=== PATIENT | female | born 1950 | race Caucasian/White ===

== ENCOUNTER → 2017-01-14 | Outpatient (CLI) | payer OTHER ==
[~2017-01-14] MED LIST: ALEN70TA3 PO; ASPI81TA28 PO; ATOR10TA88 PO; ATV1 PO; CALC500T83 PO; CHOL100010 PO; CLR10 PO; GLC/500 PO; LISI20TA3 PO; METO25TA56 PO; PARO1TAB27 PO; PRLSR20 PO; PSYL0.524 PO; RXC5 PO
[2017-01-14 13:45] LABS: BASO % 0.7 %; BASO ABS # 0.04 K/uL (0-0.2); COMPLETE YES; EOS % 3.9 %; HEMATOCRIT 37.8 % (37-47); IG% 0.2 %; LYMPH % 28.4 %; LYMPH ABS # 1.74 K/uL (1.2-3.4); MEAN CELL VOLUME 76.8 fL (80-100); MEAN CORPUSCULAR HEMOGLOBIN 23.2 pg (25-34); MEAN CORPUSCULAR HGB CONC 30.2 g/dl (32-36); MEAN PLATELET VOLUME 9.8 fL (7.4-10.4); MONO % 10.5 %; NEUT % 56.3 %; PLATELET COUNT 314 K/uL (130-400); RED BLOOD COUNT 4.92 M/uL (4.2-5.4); WHITE BLOOD COUNT 6.12 K/uL (4.8-10.8)
[2017-01-14 13:50] LABS: ESTIMATED AVERAGE GLUCOSE 137 mg/dl; HA1C FLAG Normal (Normal)
[2017-01-14 15:21] LABS: ALT/SGPT 28 U/L (12-78); BLOOD UREA NITROGEN 16 mg/dl (7-18); BUN/CREATININE RATIO 15.9 (10-20); CALCIUM 9.8 mg/dl (8.5-10.1); CARBON DIOXIDE 25 mmol/L (21-32); CHLORIDE 108 mmol/L (98-107); CHOLESTEROL 151 mg/dl (0-200); CREATININE 0.99 mg/dl (0.60-1.20); GLUCOSE 111 mg/dl (70-99); POTASSIUM 4.6 mmol/L (3.5-5.1); SODIUM 141 mmol/L (136-145); TRIGLYCERIDES 158 mg/dl (0-150); VERY LOW DENSITY LIPOPROT CALC 32 mg/dl
[2017-01-14 15:32] LABS: ALKALINE PHOSPHATASE 95 U/L (45-117); AST/SGOT 19 U/L (15-37); CHOLESTEROL/HDL RATIO 4.2; HDL CHOLESTEROL 36 mg/dl; LDL CHOLESTEROL CALCULATED 83 mg/dl
== END | disposition home or self-care (01) ==
LOC: C.LABMFLN 11:50
PROVIDERS: ATTEND Physician Assistant
DX: E78.5 Hyperlipidemia, unspecified (principal); E11.9 Type 2 diabetes mellitus without complications; R12 Heartburn; I10 Essential (primary) hypertension

== ENCOUNTER → 2017-01-15 | Outpatient (CLI) | payer OTHER | END | disposition home or self-care (01) | LOC: C.LABMFLN 09:52 | PROVIDERS: ATTEND Physician Assistant | DX: E11.9 Type 2 diabetes mellitus without complications (principal); E78.5 Hyperlipidemia, unspecified; R12 Heartburn; I10 Essential (primary) hypertension ==

== ENCOUNTER → 2017-02-06 | Outpatient (CLI) | payer OTHER | END | disposition home or self-care (01) | LOC: C.MAMM 14:22 | PROVIDERS: ATTEND Physician Assistant | DX: M85.88 Other specified disorders of bone density and structure, other site (principal); M85.852 Other specified disorders of bone density and structure, left thigh ==

== ENCOUNTER → 2017-02-24 | Outpatient (CLI) | payer OTHER | END | disposition home or self-care (01) | LOC: C.LABMFLN 11:31 | PROVIDERS: ATTEND Physician Assistant | DX: E03.9 Hypothyroidism, unspecified (principal) ==

== ENCOUNTER → 2017-07-17 | Outpatient (CLI) | payer OTHER ==
[~2017-07-17] MED LIST changes: +ATOR10TA82 PO; -ATOR10TA88 PO
[2017-07-17 17:45] LABS: BASO % 0.2 %; BASO ABS # 0.01 K/uL (0-0.2); EOS % 4.3 %; EOS ABS # 0.26 K/uL (0-0.5); HEMATOCRIT 38.2 % (37-47); HEMOGLOBIN 11.5 g/dL (12.0-16.0); IG# 0.01 K/uL (0.00-0.02); LYMPH % 26.8 %; LYMPH ABS # 1.63 K/uL (1.2-3.4); MEAN CELL VOLUME 78.3 fL (80-100); MEAN CORPUSCULAR HEMOGLOBIN 23.6 pg (25-34); MEAN CORPUSCULAR HGB CONC 30.1 g/dl (32-36); MONO % 13.8 %; MONO ABS # 0.84 K/uL (0.11-0.59); NEUT % 54.7 %; NEUT ABS # 3.34 K/uL (1.4-6.5); PLATELET COUNT 279 K/uL (130-400); RED CELL DISTRIBUTION WIDTH CV 17.1 % (11.5-14.5); WHITE BLOOD COUNT 6.09 K/uL (4.8-10.8)
[2017-07-17 18:09] LABS: ALBUMIN 3.4 gm/dl (3.4-5.0); ALT/SGPT 27 U/L (12-78); BLOOD UREA NITROGEN 17 mg/dl (7-18); CARBON DIOXIDE 24 mmol/L (21-32); CHOLESTEROL 99 mg/dl (0-200); CREATININE 1.28 mg/dl (0.60-1.20); GLUCOSE 106 mg/dl (70-99); POTASSIUM 4.3 mmol/L (3.5-5.1); SODIUM 138 mmol/L (136-145)
[2017-07-17 18:20] LABS: ALKALINE PHOSPHATASE 82 U/L (45-117); AST/SGOT 19 U/L (15-37); LDL CHOLESTEROL CALCULATED 41 mg/dl; TOTAL PROTEIN 6.9 gm/dl (6.4-8.2)
[2017-07-17 18:29] LABS: HEMOGLOBIN A1C 6.3 % (4.5-5.6)
== END | disposition home or self-care (01) ==
LOC: C.LABMFLN 11:52
PROVIDERS: ATTEND Physician Assistant
DX: E11.9 Type 2 diabetes mellitus without complications (principal); E78.5 Hyperlipidemia, unspecified; E03.9 Hypothyroidism, unspecified; I10 Essential (primary) hypertension

== ENCOUNTER → 2017-07-21 | Outpatient (CLI) | payer OTHER ==
--- NOTE | 2017-07-21 11:04 | DIAGNOSTIC IMAGING REPORT ---
(CHEST) THORAX WITH CLINICAL HISTORY: 67 years-old Female presenting with R91.1 Lung [id number]. TECHNIQUE: Multidetector CT imaging of the chest was performed after the administration of intravenous contrast. IV contrast: 92 mL of Optiray 320. A dose lowering technique was used consistent with the principles of ALARA (as low as reasonably achievable). COMPARISON: 06/24/2016. CT DOSE (mGy.cm): The estimated cumulative dose is 477.30 mGy.cm. FINDINGS: Sourcing Coordinator topogram: Cholecystectomy clips noted. On soft tissue windows, normal thyroid and thoracic inlet. No axillary, supraclavicular, hilar, or mediastinal lymphadenopathy. Atherosclerosis of the aorta. Normal heart size. Coronary artery calcification at the origin of the right main coronary artery. No pericardial or pleural effusion. Cholecystectomy clips noted. On lung windows, stable appearance of the 2 solid pulmonary nodules in the right lung, one irregular appearing solid nodule in the right middle lobe measuring 5 mm (series 4 image 141), and the second subpleural ovoid solid nodule in the right lower lobe measuring 7 mm (series 4 image 158). Minimal dependent changes consistent with atelectasis. No new nodule. Airways patent. On bone windows, degenerative changes of the spine. Subpectoral breast implants noted. Osteopenia. IMPRESSION: 1. Stable solid pulmonary nodules in the right lung. No new nodule. Please refer to below summary of Fleischner Society 2017 recommendations for follow-up of incidental CT nodules (H Vicki et al. Guidelines for management of incidental pulmonary nodules detected on CT images: From the Fleischner Society 2017. Radiology 2017; 284: 228-243.) SOLID NODULES Single nodule; size < 6 mm * Low risk patients: No routine follow-up * High risk patients: Optional CT at 12 months Single nodule; size 6-8 mm * Low risk patients: CT at 6-12 months, then consider CT at 18-24 months * High risk patients: CT at 6-12 months, then at 18-24 months Single nodule; size > 8 mm * Either low or high risk patients: Considered CT at 3 months, PET/CT, or tissue sampling Multiple nodules; size < 6 mm * Low risk patients: No routine follow up * High risk patients: Optional CT at 12 months Multiple nodules; size 6-8 mm * Low risk patients: CT at 3-6 months, then consider CT at 18-24 months * High risk patients: CT at 3-6 months, then at 18-24 months Multiple nodules; size > 8 mm * Low risk patients: CT at 3-6 months, then consider at 18-24 months * High risk patients: CT at 3-6 months, then at 18-24 months Note: These guidelines apply to incidental nodules. These guidelines do not apply to patients younger than 35 years, immunocompromised patients, or patients with cancer. * Low risk patients: Minimal or absent history of smoking and/or other known risk factors * High risk patients: History of smoking, exposure to other carcinogens, emphysema, fibrosis, upper lobe location, family history of lung cancer, etc. * If a nodule up to 8 mm is partly solid or is ground glass, further follow-up is required after 24 months to exclude possible slow growing adenocarcinoma. SUBSOLID NODULES Single ground-glass nodule * Nodule size < 6 mm: No routine follow-up * Nodule size > or = 6 mm: CT at 6-12 months to confirm persistence, then CT every 2 years until 5 years Single part-solid nodule * Nodule size < 6 mm: No routine follow-up * Nodules size > or = 6 mm: CT at 3-6 months to confirm persistence. If unchanged and solid component remains < 6 mm, annual CT should be performed for 5 years Multiple nodules * Nodule size < 6 mm: CT at 3-6 months. If stable, consider CT at 2 and 4 years. * Nodules size > or = 6 mm: CT at 3-6 months. Subsequent management based on the most suspicious nodule(s) Electronically signed by: Richard Britton M.D. 07/21/2017 11:03 AM Dictated Date/Time: 07/21/2017 10:56 AM
== END | disposition home or self-care (01) ==
LOC: C.CTS 09:25
PROVIDERS: ATTEND Physician Assistant
DX: R91.1 Solitary pulmonary nodule (principal)

== ENCOUNTER → 2017-07-23 | Outpatient (CLI) | payer OTHER ==
[2017-07-23 12:59] LABS: ALBUMIN 3.5 gm/dl (3.4-5.0); BLOOD UREA NITROGEN 12 mg/dl (7-18); CALCIUM 9.4 mg/dl (8.5-10.1); CARBON DIOXIDE 26 mmol/L (21-32); CREATININE 0.96 mg/dl (0.60-1.20); GLUCOSE 121 mg/dl (70-99); PHOSPHORUS 2.7 mg/dl (2.5-4.9); POTASSIUM 3.8 mmol/L (3.5-5.1); SODIUM 141 mmol/L (136-145)
[2017-07-23 13:58] LABS: CREATININE RANDOM URINE 92.2 mg/dl
== END | disposition home or self-care (01) ==
LOC: C.LABMFLN 08:38
PROVIDERS: ATTEND Physician Assistant
DX: E03.9 Hypothyroidism, unspecified (principal); E11.9 Type 2 diabetes mellitus without complications; E78.5 Hyperlipidemia, unspecified; I10 Essential (primary) hypertension; T50.8X5A Adverse effect of diagnostic agents, initial encounter

== ENCOUNTER → 2017-09-03 | Outpatient (CLI) | payer OTHER | END | disposition home or self-care (01) | LOC: C.LABMFLN 12:52 | PROVIDERS: ATTEND Physician Assistant | DX: E03.9 Hypothyroidism, unspecified (principal) ==

== ENCOUNTER → 2018-01-27 | Outpatient (CLI) | payer OTHER ==
[2018-01-27 12:33] LABS: BASO % 0.8 %; BASO ABS # 0.05 K/uL (0-0.2); EOS % 8.3 %; EOS ABS # 0.51 K/uL (0-0.5); HEMATOCRIT 37.3 % (37-47); HEMOGLOBIN 11.4 g/dL (12.0-16.0); IG# 0.01 K/uL (0.00-0.02); LYMPH % 29.9 %; LYMPH ABS # 1.84 K/uL (1.2-3.4); MEAN CELL VOLUME 79.7 fL (80-100); MEAN CORPUSCULAR HEMOGLOBIN 24.4 pg (25-34); MEAN CORPUSCULAR HGB CONC 30.6 g/dl (32-36); MEAN PLATELET VOLUME 10.1 fL (7.4-10.4); MONO ABS # 0.43 K/uL (0.11-0.59); NEUT % 53.8 %; NEUT ABS # 3.32 K/uL (1.4-6.5); PLATELET COUNT 295 K/uL (130-400); RED CELL DISTRIBUTION WIDTH CV 17.1 % (11.5-14.5); RED CELL DISTRIBUTION WIDTH SD 49.3 fL (36.4-46.3); WHITE BLOOD COUNT 6.16 K/uL (4.8-10.8)
[2018-01-27 13:26] LABS: HEMOGLOBIN A1C 6.2 % (4.5-5.6)
[2018-01-27 13:44] LABS: ALBUMIN 3.5 gm/dl (3.4-5.0); ALKALINE PHOSPHATASE 100 U/L (45-117); ALT/SGPT 21 U/L (12-78); AST/SGOT 17 U/L (15-37); BLOOD UREA NITROGEN 14 mg/dl (7-18); CALCIUM 9.1 mg/dl (8.5-10.1); CARBON DIOXIDE 25 mmol/L (21-32); CHOLESTEROL 131 mg/dl (0-200); CREATININE 1.15 mg/dl (0.60-1.20); GLUCOSE 105 mg/dl (70-99); LDL CHOLESTEROL CALCULATED 47 mg/dl; POTASSIUM 4.5 mmol/L (3.5-5.1); SODIUM 139 mmol/L (136-145); TOTAL PROTEIN 7.1 gm/dl (6.4-8.2)
== END | disposition home or self-care (01) ==
LOC: C.LABMFLN 09:20
PROVIDERS: ATTEND Physician Assistant
DX: E11.9 Type 2 diabetes mellitus without complications (principal); E78.5 Hyperlipidemia, unspecified; I10 Essential (primary) hypertension; E03.9 Hypothyroidism, unspecified

== ENCOUNTER 2019-08-27 07:52 | Inpatient (IN) ==
--- NOTE | 2019-08-10 13:22 | PAT Medication Instructions ---
Medication Instructions Date of Service August 10, 2019 Home Medications Medication Instructions Recorded aspirin 81 mg tablet,delayed 81 mg PO DAILY #90 tab 01/22/19 release blood sugar diagnostic #50 ea 01/22/19 lancets 33 gauge #100 ea 01/22/19 loratadine 10 mg tablet 10 mg PO DAILY #90 tab 01/22/19 metformin 500 mg tablet 500 mg PO BID #180 tab 01/22/19 bupropion HCl 150 mg 24 hr tablet, 150 mg PO QAM #90 tab 02/24/19 extended release aspirin 81 mg tablet,delayed release 81 mg PO DAILY loratadine 10 mg tablet 10 mg PO DAILY metformin 500 mg tablet 500 mg PO BID lisinopril 10 mg tablet 10 mg PO HS bupropion HCl 150 mg 24 hr tablet, extended release 150 mg PO QAM atorvastatin 10 mg PO DAILY calcium carbonate-vitamin D3 [Calcium 600 + D(3)] 2 tab PO DAILY cholecalciferol (vitamin D3) [Vitamin D3] 50 mcg PO DAILY ferrous sulfate [iron] 325 mg PO DAILY levothyroxine 25 mcg PO QAM magnesium 800 mg PO DAILY metoprolol tartrate 12.5 mg PO BID omeprazole 20 mg PO QAM paroxetine HCl 30 mg PO HS DO NOT take the morning of surgery loratadine 10 mg tablet 10 mg PO DAILY metformin 500 mg tablet 500 mg PO BID calcium carbonate-vitamin D3 [Calcium 600 + D(3)] 2 tab PO DAILY cholecalciferol (vitamin D3) [Vitamin D3] 50 mcg PO DAILY ferrous sulfate [iron] 325 mg PO DAILY magnesium 800 mg PO DAILY Take morning of surgery With a small sip of water, OTHERWISE NOTHING TO EAT OR DRINK AFTER MIDNIGHT: aspirin 81 mg tablet,delayed release 81 mg PO DAILY bupropion HCl 150 mg 24 hr tablet, extended release 150 mg PO QAM atorvastatin 10 mg PO DAILY levothyroxine 25 mcg PO QAM metoprolol tartrate 12.5 mg PO BID omeprazole 20 mg PO QAM Take evening before surgery metformin 500 mg tablet 500 mg PO BID lisinopril 10 mg tablet 10 mg PO HS metoprolol tartrate 12.5 mg PO BID paroxetine HCl 30 mg PO HS Other Notes If you have any questions please call us at [phone] or [phone] or [phone] or [phone]
--- NOTE | 2019-08-12 12:10 | Anesthesiology Consultation ---
Date of Service August 12, 2019 Assessment & Plan (1) Encounter for pre-operative examination: Chart Review Chart Review: Acceptable Risk for Surgery and Patient seen in Pre Admission Testing Teaching & Discussion Instructed NPO after midnight before surgery, except medications with 15 cc of water. Medication instructions provided according to the PAT guidelines. History Surgery Operation Date: 08/30/19 12:10 Proposed Procedures p L2-L3 Decompression and Fusion, L3-S1 Hardware Removal, Spinal Cord Monitoring - Surjit Tello DO Height/Weight Height: 5 ft 2.5 in Weight: 82.1 kg Allergies Allergy/AdvReac Type Severity Reaction Status Date / Time adhesive Allergy Unknown RASH Verified 08/06/19 11:19 morphine Allergy Unknown HIVES Verified 08/06/19 11:19 chlorhexidine AdvReac Unknown Itching/Bur Verified 08/06/19 11:19 ophelia nitroglycerin AdvReac Unknown SEVERE Verified 08/06/19 11:19 HEADACHE [place] Allergy Unknown NASAL Uncoded 08/06/19 11:19 CONGESTION Medications Home Medications Medication Instructions Recorded Confirmed Last Taken aspirin 81 mg tablet,delayed 81 mg PO DAILY #90 tab 01/22/19 08/06/19 Unknown release blood sugar diagnostic #50 ea 01/22/19 07/01/19 Unknown blood-glucose meter #1 ea 01/22/19 07/01/19 Unknown lancets 33 gauge #100 ea 01/22/19 07/01/19 Unknown loratadine 10 mg tablet 10 mg PO DAILY #90 tab 01/22/19 08/06/19 Unknown metformin 500 mg tablet 500 mg PO BID #180 tab 01/22/19 08/06/19 Unknown lisinopril 10 mg tablet 10 mg PO HS 01/28/19 08/06/19 Unknown bupropion HCl 150 mg 24 hr tablet, 150 mg PO QAM #90 tab 02/24/19 08/06/19 Unknown extended release atorvastatin 10 mg PO DAILY 08/06/19 08/06/19 Unknown calcium carbonate-vitamin D3 2 tab PO DAILY 08/06/19 08/06/19 Unknown [Calcium 600 + D(3)] cholecalciferol (vitamin D3) 50 mcg PO DAILY 08/06/19 08/06/19 Unknown [Vitamin D3] ferrous sulfate [iron] 325 mg PO DAILY 08/06/19 08/06/19 Unknown levothyroxine 25 mcg PO QAM 08/06/19 08/06/19 Unknown magnesium 800 mg PO DAILY 08/06/19 08/06/19 Unknown metoprolol tartrate 12.5 mg PO BID 08/06/19 08/06/19 Unknown omeprazole 20 mg PO QAM 08/06/19 08/06/19 Unknown paroxetine HCl 30 mg PO HS 08/06/19 08/06/19 Unknown Past Medical History Medical History Anxiety (Acute) Back problem Diabetes (Acute) Esophageal reflux Fatty liver Gait abnormality Per neurology 06/2019: "likely multifactorial but suspect largest contributor is significant neuropathy on exam (likely from diabetes, h/o chemotherapy exposure). She also has a history of bilateral knee replacements and right hip replacement after which she and family noticed worsening of gait imbalance. 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 Has never locked. Lung nodule (Acute) LEFT , SIZE MONITORED...LAST CHECK: 2 YR AGO Osteoporosis (Acute) SOB (shortness of breath) on exertion Thyroid disease Umbilical hernia (Acute) Exercise / Class Metabolic Activity III < 4 Walking/Shop/Light housework (No CP or SOB with ambulation on 1 level, "out of shape") Past Family History Family History Mother Anxiety Diabetes Hypertension Myocardial infarction Father Colorectal cancer Diabetes Grandfather Alcohol abuse Past Surgical History Surgical History History of cardiac cath 20% lesion in mid LAD, otherwise normal coronaries. History of cholecystectomy + APPENDECTOMY History of colonoscopy with polypectomy History of hip surgery R History of lumbar fusion History of lumpectomy of left breast WITH SAMPLE OF LYMPH NODES History of mastectomy BILATERAL AND RECONSTRUCTION History of radiofrequency ablation procedure for cardiac arrhythmia 2000/SUCCESSFUL History of tonsillectomy and adenoidectomy History of total left knee replacement History of total right hip replacement History of total right knee replacement Past Anesthesia History No Hx of Anesthesia Complications and No Family Hx of Anesthesia Complications History of PONV No Hx of PONV and No Hx of Motion Sickness Social History Smoking Status: Never smoker Do You Dip or Chew Tobacco: No Hx Alcohol Use: No Hx Substance Use: No substance use type: does not use Review of Systems Pt denies any recent chest pain, shortness of breath, palpitations, fever or URI. +cough, mild, mostly in AM, pt feels 2/2 allergies Physical Exam Vital Signs BP: 108/73 P: 70bpm SPO2: 95% RA T: 98.1 F R: 16 ENMT Mouth: + dental restorations (upper and lower partials); no chipped teeth and no loose teeth Thyromental Distance: > or= 3.5 Finger Breadths (4) Mallampati Class: II Neck + short neck; neck extension not limited Respiratory normal respiratory effort Auscultation: lungs clear to auscultation bilaterally Cardiovascular Rate/Rhythm: regular rate and regular rhythm Heart Sounds: no murmur Extremities: no edema Testing Laboratory Results 08/12/19 12:24 08/12/19 12:24 PT 10.5 Seconds (9.0-12.0) 08/12/19 12:24 INR 1.0 (0.9-1.1) 08/12/19 12:24 APTT 24.7 Seconds (21.0-31.0) 08/12/19 12:24 Urine Color Yellow 08/12/19 Unknown Urine Appearance Clear (Clear) 08/12/19 Unknown Urine pH 7.0 (4.5-7.5) 08/12/19 Unknown Ur Specific [place] 1.010 (1.000-1.030) 08/12/19 Unknown Urine Protein Negative (Negative) 08/12/19 Unknown Urine Glucose (UA) Negative (Negative) 08/12/19 Unknown Urine Ketones Negative (Negative) 08/12/19 Unknown Urine Nitrite Negative (Negative) 08/12/19 Unknown Ur Leukocyte Esterase 1+ (Negative) H 08/12/19 Unknown Urine WBC (Auto) >30 /hpf (0-5) H 08/12/19 Unknown Urine RBC (Auto) 0-4 /hpf (0-4) 08/12/19 Unknown U Hyaline Cast (Auto) 0 /lpf (0-5) 08/12/19 Unknown U Epithel Cells (Auto) 0-5 /lpf (0-5) 08/12/19 Unknown Urine Bacteria (Auto) 4+ (Negative) H 08/12/19 Unknown Blood Type O Positive 08/12/19 12:24 Antibody Screen NEGATIVE 08/12/19 12:24 08/12/19 Unknown Urine Culture - Preliminary Urine,Clean Catch Gram negative bacilli *Surgeon's office flagged re: + UA Electrocardiogram Date: 08/12/19 Findings: + NSR @ (63bpm) Low voltage QRS. No significant change from 2016 EKG. Chest X-Ray Date: 08/12/19 Findings: + NAD Echocardiogram Date: 10/01/14 EF: >70% No RWMA. RV normal in size and function. Grade I diastolic dysfunction. No significant valve disease. Cardiac Catheterization Date: 07/05/14 Minimal singel vessel mid LAD (20%) lesion, otherwise normal coronary angiogram. Normal R heart filling pressures. Other Testing Event Monitor 07/06-07/12/19 Summary: NSR.
[2019-08-12 12:54] LABS: Basophils # (auto) 0.04 K/uL (0-0.2); Basophils % (auto) 0.6 %; Eosinophils # (auto) 0.36 K/uL (0-0.5); Hematocrit (blood only) 41.3 % (37-47); Hemoglobin 13.3 g/dL (12.0-16.0); Immature Granulocytes # (auto) 0.01 K/uL (0.00-0.02); Immature Granulocytes % (auto) 0.1 %; Lymphocytes # (auto) 2.08 K/uL (1.2-3.4); Lymphocytes % (auto) 29.1 %; Mean Corpuscular Hemoglobin 28.4 pg (25-34); Mean Corpuscular Hgb Conc 32.2 g/dL (32-36); Mean Corpuscular Volume 88.2 fL (80-100); Mean Platelet Volume 9.6 fL (7.4-10.4); Monocytes # (auto) 0.55 K/uL (0.11-0.59); Monocytes % (auto) 7.7 %; Neutrophils % (auto) 57.5 %; Platelet Count 263 K/uL (130-400); RDW Coefficient of Variation 15.5 % (11.5-14.5); RDW Standard Deviation 49.9 fL (36.4-46.3); Red Blood Count 4.68 M/uL (4.2-5.4); White Blood Count 7.14 K/uL (4.8-10.8)
[2019-08-12 13:03] LABS: BUN Creatinine Ratio 17.6 (10-20); Calcium 9.6 mg/dl (8.5-10.1); Creatinine Clr Calc Pharmacy 48.2 ml/min; Est GFR (African American) 59.6; Est GFR (Non-African American) 51.4; Potassium 4.7 mmol/L (3.5-5.1)
[2019-08-12 13:08] LABS: Partial Thromboplastin Ratio 0.9; Partial Thromboplastin Time 24.7 Seconds (21.0-31.0); Prothrombin Time 10.5 Seconds (9.0-12.0)
--- NOTE | 2019-08-12 13:37 | XRay Report ---
XR chest Pre-admission PA/Lat CLINICAL HISTORY: 69 years-old Female presenting with preoperative assessment. TECHNIQUE: PA and lateral views of the chest were obtained. COMPARISON: 01/02/2016. FINDINGS: Atherosclerosis of the aortic arch. Cardiac silhouette normal in size. Lungs and pleural spaces clear . Osseous structures normal. Cholecystectomy clips noted. Surgical clips noted in the left breast. Bi lateral breast implants suspected. IMPRESSION: 1. No acute cardiopulmonary disease. ACT 112: Negative or not required by law. Results electronically sent 08/12/2019 1:36 PM to: Surjit Tello DO Electronically signed by: Richard Britton M.D. 08/12/2019 1:36 PM
[2019-08-12 16:17] LABS: Appearance Urine Clear (Clear); Bacteria Urine Automated 4+ (Negative); Bilirubin Urine Negative (Negative); Blood Urine Negative (Negative); Cast Urine Automated 0 /lpf (0-5); Color Urine Yellow; Epithelial Cell Urine Auto 0-5 /lpf (0-5); Glucose Urine UA Negative (Negative); Ketones Urine Negative (Negative); Leukocyte Esterase Urine 1+ (Negative); Nitrite Urine Negative (Negative); Protein Urine Negative (Negative); RBC Urine Automated 0-4 /hpf (0-4); Urobilinogen Urine Negative (Negative); WBC Urine Automated >30 /hpf (0-5)
--- NOTE | 2019-08-12 22:11 | Electrocardiogram Report ---
Test Reason : Blood Pressure : / mmHG Vent. Rate : 063 BPM Atrial Rate : 063 BPM P-R Int : 146 ms QRS Dur : 084 ms QT Int : 408 ms P-R-T Axes : 000 009 007 degrees QTc Int : 417 ms Normal sinus rhythm Low voltage QRS Borderline ECG When compared with ECG of 02-JAN-2016 11:26, No significant change was found Confirmed by Darinel Soto ([id number]) on 08/12/2019 10:10:47 PM Referred By: Surjit Tello Confirmed By:Darinel Soto
[~2019-08-27 07:52] MED LIST changes: +ACETAMINOPHEN 500 MG TAB PO SCH; -ALEN70TA3 PO; -ASPI81TA28 PO; -ATOR10TA82 PO; -ATV1 PO; -CALC500T83 PO; +CEFAZOLIN 2000MG 2,000 MG/15 ML SYR IV SCH; -CHOL100010 PO; -CLR10 PO; +CeleBREX 200 MG CAP PO SCH; +GABAPENTIN 300 MG CAP PO SCH; -GLC/500 PO; -LISI20TA3 PO; +LR 15ML/HR IV SCH; -METO25TA56 PO; -PARO1TAB27 PO; -PRLSR20 PO; -PSYL0.524 PO; -RXC5 PO
[2019-08-27] MEDS ORDERED: DEXAMETHASONE SOD INJ 4 MG/ML VIAL ONE (11:13)
[2019-08-27] MEDS ORDERED: ROCURONIUM BROMIDE 10 MG/ML 5 ML VIAL ONE (11:13)
[2019-08-27] MEDS ORDERED: PROPOFOL IV EMULSION 10 MG/ML 20 ML VIAL IV ONE (11:13)
[2019-08-27] MEDS ORDERED: ONDANSETRON INJ 2 MG/ML 2 ML VIAL ONE (11:13)
[2019-08-27] MEDS ORDERED: fentaNYL citrate 100 MCG/2 ML VIAL ONE ×2 (11:13)
[2019-08-27] MEDS ORDERED: LIDOCAINE HCL 2% 2 ML VIAL/AMP(20MG/ML) INFIL ONE (11:13)
[2019-08-27] MEDS ORDERED: HYDROmorphone INJ 2 MG/ML SYR/VIAL IV PRN (11:31)
[2019-08-27] MEDS ORDERED: ONDANSETRON INJ 2 MG/ML 2 ML VIAL IV PRN ×2 (11:31→15:40)
[2019-08-27] MEDS ORDERED: ePHEDrine sulfate 50 MG/ML AMP IV PRN (11:31)
[2019-08-27] MEDS ORDERED: ATROPINE SULFATE 0.1 MG/ML 10ML SYR IV PRN (11:31)
[2019-08-27] MEDS ORDERED: PROMETHAZINE HCL 12.5 MG in SODIUM CHLORIDE 0.9% 50 ML IV PRN ×2 (11:31→15:40)
[2019-08-27] MEDS ORDERED: METOCLOPRAMIDE HCL INJ 5 MG/ML 2 ML VIAL IV PRN ×2 (11:31→15:40)
[2019-08-27] MEDS ORDERED: KETOROLAC 30 MG/ML VIAL IV PRN (11:31)
[2019-08-27] MEDS ORDERED: fentaNYL citrate 100 MCG/2 ML VIAL IV PRN (11:31)
[2019-08-27] MEDS ORDERED: GLYCOPYRROLATE 0.2 MG/ML VIAL ONE (11:44)
[2019-08-27] MEDS ORDERED: NEOSTIGMINE METHYLSULFATE 5 MG/5 ML SYR ONE (11:44)
--- NOTE | 2019-08-27 11:51 | History & Physical Bridge Note ---
Date of Service August 27, 2019 History & Physical Bridge Note I have examined the patient, reviewed the History & Physical and in the interval since the performance of the History & Physical I have noted the following changes of clinical significance: no changes noted
--- NOTE | 2019-08-27 11:52 | History & Physical Report ---
Date of Service August 27, 2019 Assessment & Plan (1) Spinal stenosis, lumbar region with neurogenic claudication: L2-L3 decompression fusion, L3-S1 hardware removal Present on Admission?: Yes History of Present Illness Chief Complaint: Back and bilateral leg pain Primary Care Provider: Stephenie Ortiz PA-C This is a 69-year-old female known to me that presents with worsening back and bilateral leg pain. After failing extensive course of nonoperative care is here for surgical intervention. Allergies Allergy/AdvReac Type Severity Reaction Status Date / Time adhesive Allergy Unknown RASH Verified 08/27/19 08:21 morphine Allergy Unknown HIVES Verified 08/27/19 08:21 chlorhexidine AdvReac Unknown Itching/Bur Verified 08/27/19 08:21 ophelia nitroglycerin AdvReac Unknown SEVERE Verified 08/27/19 08:21 HEADACHE [place] Allergy Unknown NASAL Uncoded 08/16/19 11:26 CONGESTION Home Medications Home Medications Medication Instructions Recorded Confirmed Type aspirin 81 mg tablet,delayed 81 mg PO DAILY #90 tab 01/22/19 08/27/19 Rx release blood sugar diagnostic #50 ea 01/22/19 08/16/19 Rx blood-glucose meter #1 ea 01/22/19 08/16/19 History lancets 33 gauge #100 ea 01/22/19 08/16/19 Rx loratadine 10 mg tablet 10 mg PO DAILY #90 tab 01/22/19 08/27/19 Rx atorvastatin 10 mg PO DAILY 08/06/19 08/27/19 History calcium carbonate-vitamin D3 2 tab PO DAILY 08/06/19 08/27/19 History [Calcium 600 + D(3)] cholecalciferol (vitamin D3) 50 mcg PO DAILY 08/06/19 08/27/19 History [Vitamin D3] ferrous sulfate [iron] 325 mg PO DAILY 08/06/19 08/27/19 History magnesium 800 mg PO DAILY 08/06/19 08/27/19 History metoprolol tartrate 12.5 mg PO BID 08/06/19 08/27/19 History omeprazole 20 mg PO QAM 08/06/19 08/27/19 History bupropion HCl 150 mg 24 hr tablet, 150 mg PO QAM #90 tab 08/16/19 08/27/19 Rx extended release levothyroxine 25 mcg tablet 25 mcg PO QAM #90 tab 08/16/19 08/27/19 Rx lisinopril 10 mg tablet 10 mg PO HS #90 tab 08/16/19 08/27/19 Rx meloxicam 7.5 mg tablet 7.5 mg PO DAILY 08/16/19 08/27/19 History metformin 500 mg tablet 500 mg PO BID #180 tab 08/16/19 08/27/19 Rx paroxetine HCl 30 mg tablet 30 mg PO HS #90 tab 08/16/19 08/27/19 Rx Past Med/Surg History Medical History Anxiety (Acute) Back problem Diabetes (Acute) Esophageal reflux Fatty liver Gait abnormality Per neurology 06/2019: "likely multifactorial but suspect largest contributor is significant neuropathy on exam (likely from diabetes, h/o chemotherapy exposure). She also has a history of bilateral knee replacements and right hip replacement after which she and family noticed worsening of gait imbalance. 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 Has never locked. Lung nodule (Acute) LEFT , SIZE MONITORED...LAST CHECK: 2 YR AGO Osteoporosis (Acute) SOB (shortness of breath) on exertion Thyroid disease Umbilical hernia (Acute) Surgical History History of cardiac cath 20% lesion in mid LAD, otherwise normal coronaries. History of cholecystectomy + APPENDECTOMY History of colonoscopy with polypectomy History of hip surgery R History of lumbar fusion History of lumpectomy of left breast WITH SAMPLE OF LYMPH NODES History of mastectomy BILATERAL AND RECONSTRUCTION History of radiofrequency ablation procedure for cardiac arrhythmia 2000/SUCCESSFUL History of tonsillectomy and adenoidectomy History of total left knee replacement History of total right hip replacement History of total right knee replacement Family History Mother Anxiety Diabetes Hypertension Myocardial infarction Father Colorectal cancer Diabetes Grandfather Alcohol abuse Social History Preferred Language: [place] Communication Ability: Effective Grinder Hand Required: No Beliefs That Will Affect Care: None Current Living Situation: Spouse Other Information That Helps Us Care for You: No Feels Safe at Home: Yes Smoking Status: Never smoker Do You Dip or Chew Tobacco: No ; Second Hand Exposure: No ; Hx Alcohol Use: No Hx Substance Use: No Physical Exam Physical Exam: Patient is alert and oriented neurologically intact. Results & Data Vital Signs (Past 12 Hours) Vital Signs Temp Pulse Resp BP Pulse Ox 08/27/19 08:26 36.7 C 71 18 114/78 95
[2019-08-27] MEDS ORDERED: BUPIVACAINE/EPINEPHRINE 0.5% MPF 1:200,000 10 ML VIAL ONE (12:10)
[2019-08-27] MEDS ORDERED: BACITRACIN INJ 50,000 UNIT VIAL ONE (12:10)
[2019-08-27] MEDS ORDERED: PHENYLEPHRINE 100MCG/ML 5ML SYR ONE (12:48)
[2019-08-27] MEDS ORDERED: ePHEDrine sulfate 50 MG/ML SYR ONE (12:48)
[2019-08-27] MEDS ORDERED: THROMBIN FOR SOLN 20000 UNIT KIT ONE (13:06)
[2019-08-27] MEDS ORDERED: FLOSEAL HEMOSTATIC MATRIX 10ML TOP ONE (13:17)
--- NOTE | 2019-08-27 14:09 | Operative Report ---
Post Operative Report Pre & Post Diagnosis Operation Date: 08/27/19 10:15 Pre-Op Diagnosis: Lumbar Spinal Stenosis with Neurogenic Claudication Post-Op Diagnosis: Lumbar Spinal Stenosis with Neurogenic Claudication I identified the patient and participated in the time-out.: Yes Procedure Operation Date: 08/27/19 10:15 Actual Procedures #1 removal of posterior segmental instrumentation L3-S1. #2 exploration of fusion L3-S1. #3 lumbar decompression with bilateral medial facetectomies foraminotomies L2-L3. #4 posterior spinal fusion L2-L3. #5 placement posterior instrumentation L2-L3. #6 interbody fusion L2-L3. #7 placement peek cage 9 x 22 mm at L2-L3. #8 placement locally harvested morselized autograft in the posterior gutters. #9 placement infuse collagen sponge, master graft in the posterior lateral gutters and ostial amp and interbody space. Surgeon Surjit Tello, [facility] Teacher Roe Alan Estimated Blood Loss 450 Findings Consistent with Post-Op Diagnosis Specimens None Indications This is a 69-year-old female known to me that presents with worsening chronic persistent bilateral leg pain. After failing extensive course of nonoperative care would like to undergo the above-mentioned procedure. Description of Procedure Patient was met with identified informed consent obtained. Patient was then taken to the operative suite underwent intubation placed in a prone position on the Greg table on top of the Giuseppe frame. All bony prominences well-padded eyes inspected to ensure no external pressure placed upon up at this point the lumbar spine is prepped and draped in the normal sterile fashion. Sharp dissection with the assistance of Bovie cautery was performed down to and exposing the lamina and transverse processes of L2 and instrumentation at L3-L4-L5 and S1 levels bilaterally. I then proceeded move the hardware bilaterally exploring the fusion mass noting it to be mature and intact. And then performed a complete laminectomy of L2 including bilateral medial facetectomies and foraminotomies addressing severe spinal stenosis. Pedicle screws were then placed in L2 and L3 bilaterally with assistance of fluoroscopy and the proper sized jose e placed. By way of a transforaminal approach on the right complete discectomy of L2-3 was performed endplates curetted to subcortical bleeding bone and a 9 x 22 mm peek cage filled with osteo-bone graft tapped in position. The rods were then locked into final position bilaterally. The transverse processes of L2 and L3 burred to subcortical bleeding bone. Infuse collagen sponge mass graft local autograft placed in the posterior lateral gutters. 15 round ANDRE drain inserted. Incision was then closed with 1 Vicryl in the fascia 2-0 Vicryl subcutaneously and 4 Monocryl for final skin closure. Steri-Strip sterile dressings placed. Patient waken taken to PACU stable addition. Please note Roe Alan was present at the entire procedure involved the patient positioning complex portions of the surgery and final skin closure. Lastly spinal cord monitoring was utilized that the procedure no changes noted. I attest to the content of the Intraoperative Record and any orders documented therein. Any exceptions are noted below.
--- NOTE | 2019-08-27 14:11 | Fluoroscopy Report ---
FL lumbar spine 2-3V CLINICAL HISTORY: L3-S1 REMOVE HARDWARE/L2-3 DECOMPRESSION/FUSION/INTERBODY COMPARISON STUDY: None. FLUOROSCOPY TIME: 14 seconds. FINDINGS: 2 fluoroscopic spot images of the lumbar spine demonstrate posterior decompression and fusi on at L2-L3. Evidence for hardware removal within the lower lumbar spine. The hardware appears intact . IMPRESSION: Fluoroscopy provided for L2-L3 posterior decompression and fusion ACT 112: Negative or not required by law. Electronically signed by: Jhon Naqvi M.D. 08/27/2019 2:10 PM
--- NOTE | 2019-08-27 15:07 | Anesthesiology Progress Note ---
Date of Service August 27, 2019 Anesthesia Post Procedure Vital Signs Vital Signs: Temp Pulse Pulse Resp BP Pulse Ox 08/27/19 15:05 66 15 109/68 95 08/27/19 14:55 76 13 116/63 95 08/27/19 14:45 72 13 114/69 96 08/27/19 14:35 36.9 C 78 12 93/55 L 95 08/27/19 08:26 36.7 C 71 18 114/78 95 Pain Intensity Back: Pain Intensity: 4 Transfer of Care Handoff Completed per policy Notes Mental Status: alert / awake / arousable and participated in evaluation Patient Amnestic to Procedure: Yes Nausea / Vomiting: adequately controlled Pain: adequately controlled Airway Patency, RR, SpO2: stable & adequate BP & HR: stable & adequate Hydration State: stable & adequate Anesthetic Complications: no major complications apparent
[2019-08-27] MEDS ORDERED: HYDROmorphone INJ 0.5 MG/0.5 ML SYR IV PRN (15:40)
[2019-08-27] MEDS ORDERED: SOD PHOSPHATE/SOD BIPHOSPHATE ENEMA 132 ML BTL PR PRN (15:40)
[2019-08-27] MEDS ORDERED: DO NOT ADMINISTER FLU VACCINE PRN (15:40)
[2019-08-27] MEDS ORDERED: ONDANSETRON 4 MG OD TAB PO PRN (15:40)
[2019-08-27] MEDS ORDERED: LORazepam 0.5 MG TAB PO PRN (15:40)
[2019-08-27] MEDS ORDERED: bisacodyL 10 MG SUPP PR PRN (15:40)
[2019-08-27] MEDS ORDERED: MAGNESIUM HYDROXIDE SUSP 30 ML UDC PO PRN (15:40)
[2019-08-27] MEDS ORDERED: ACETAMINOPHEN 1,000 MG/100 ML VIAL IV PRN (15:40)
[2019-08-27] MEDS ORDERED: DO NOT ADMINISTER PNEUMOCOCCAL VACCINE PRN (15:40)
[2019-08-27] MEDS ORDERED: ALUMINUM/MAGNESIUM SUSP 30 ML UDC PO PRN (15:40)
[2019-08-27] MEDS ORDERED: NALOXONE HCL 0.4 MG/1 ML VIAL/CARP IV PRN (15:40)
[2019-08-27] MEDS ORDERED: FAMOTIDINE 20 MG TAB PO PRN (15:40)
[2019-08-27] MEDS ORDERED: LORazepam 0.5 MG/1 ML VIAL IV PRN (15:40)
[2019-08-27] MEDS ORDERED: HYDROmorphone INJ 1 MG/ML SYRINGE IV PRN (15:40)
[2019-08-27] MEDS: SODIUM CHLORIDE 0.9% 1000ML 1,000 ML IV SCH (16:13)
--- NOTE | 2019-08-27 16:19 | Hospitalist Consultation ---
Date of Consultation August 27, 2019 Assessment & Plan (1) Spinal stenosis, lumbar region with neurogenic claudication: -S/p lumbar decompression fusion by Dr. Tello -Pain management, DVT prophylaxis and bowel regimen per the primary team -PT/OT consults, case management to assist with discharge to [place] per patient request -Oral intake as tolerated -Encourage fluids and use of lozenges for cottonmouth -Follow a.m. CBC and PRP (2) Diabetes: - Last A1c was in 2019 at 6.2, will recheck with a.m. labs - ISS with Accu-Cheks ACHS - Uses metformin 500 mg BID at home, currently on hold (3) Hypertension: -Continue metoprolol 12.5 mg twice daily, lisinopril 10 mg at bedtime, ASA 81 mg daily (4) Hyperlipidemia: -Continue atorvastatin 10 mg daily (5) History of ventricular tachycardia: -History of such, status post ablation which was successful (6) History of TIA (transient ischemic attack): -History of such in 2014 (7) History of breast cancer: -History of such in 2007, in remission, status post left lumpectomy, bilateral mastectomy, chemo and radiation, completed Herceptin x2 years following diagnosis. (8) Hypothyroidism: -Continue levothyroxine 25 mcg daily (9) Osteoporosis: -Continue vitamin D supplementation CODE: FULL CODE DISPO: From home Thank you for involving us in the care of Mrs. Palacio. Please do not hesitate to call with questions or concerns. Medicine service will follow along. Supervising Physician Co-Signing Physician Notes I personally saw and examined the patient. I verified all quiñones points and agree with HINA Sandoval with the following exceptions and/or additions: Possible prior TIA after a THR with hypotension during the operation. O/E HS1+2, no murmurs, CTAB, abdo SNT Hypotension - Hold lisinopril while her BP improves post operatively T2DM - agree with switching metformin to insulin coverage while here Thank you for the consult, we will continue to see given ongoing hypotension at present. History of Present Illness Attending Physician: Surjit Tello, DO History of Present Illness This is a 69-year-old female with past medical history of DM type II, HTN, HLD, breast cancer s/p bilateral mastectomy, radiation and chemotherapy in 2007, breast implants, TIA in 2015, ventricular tachycardia status post ablation in 1999 which was successful, osteoporosis, hypothyroidism, GERD, anxiety who presents for elective decompression fusion done on 08/27/[address] Tello Patient is doing very well today. She reports that she is able to move her feet and legs without difficulty, no sensory defects other than her baseline peripheral neuropathy. She reports good appetite. Notes she does have dry cottonmouth currently and that she has lozenges for this in her bag. Patient reports also wanting to go to [place] for PT/OT and that there is a bed on hold for her at time of discharge. Her lives at home with her and is able to help her with basic ADLs. Allergies Allergy/AdvReac Type Severity Reaction Status Date / Time adhesive Allergy Unknown RASH Verified 08/27/19 08:21 morphine Allergy Unknown HIVES Verified 08/27/19 08:21 chlorhexidine AdvReac Unknown Itching/Bur Verified 08/27/19 08:21 ophelia nitroglycerin AdvReac Unknown SEVERE Verified 08/27/19 08:21 HEADACHE [place] Allergy Unknown NASAL Uncoded 08/16/19 11:26 CONGESTION Home Medications Home Medications Medication Instructions Recorded Confirmed Type aspirin 81 mg tablet,delayed 81 mg PO DAILY #90 tab 01/22/19 08/27/19 Rx release blood sugar diagnostic #50 ea 01/22/19 08/16/19 Rx blood-glucose meter #1 ea 01/22/19 08/16/19 History lancets 33 gauge #100 ea 01/22/19 08/16/19 Rx loratadine 10 mg tablet 10 mg PO DAILY #90 tab 01/22/19 08/27/19 Rx atorvastatin 10 mg PO DAILY 08/06/19 08/27/19 History calcium carbonate-vitamin D3 2 tab PO DAILY 08/06/19 08/27/19 History [Calcium 600 + D(3)] cholecalciferol (vitamin D3) 50 mcg PO DAILY 08/06/19 08/27/19 History [Vitamin D3] ferrous sulfate [iron] 325 mg PO DAILY 08/06/19 08/27/19 History magnesium 800 mg PO DAILY 08/06/19 08/27/19 History metoprolol tartrate 12.5 mg PO BID 08/06/19 08/27/19 History omeprazole 20 mg PO QAM 08/06/19 08/27/19 History bupropion HCl 150 mg 24 hr tablet, 150 mg PO QAM #90 tab 08/16/19 08/27/19 Rx extended release levothyroxine 25 mcg tablet 25 mcg PO QAM #90 tab 08/16/19 08/27/19 Rx lisinopril 10 mg tablet 10 mg PO HS #90 tab 08/16/19 08/27/19 Rx meloxicam 7.5 mg tablet 7.5 mg PO DAILY 08/16/19 08/27/19 History metformin 500 mg tablet 500 mg PO BID #180 tab 08/16/19 08/27/19 Rx paroxetine HCl 30 mg tablet 30 mg PO HS #90 tab 08/16/19 08/27/19 Rx Patient History Medical History Anxiety (Acute) Back problem Diabetes (Acute) Esophageal reflux Fatty liver Gait abnormality Per neurology 06/2019: "likely multifactorial but suspect largest contributor is significant neuropathy on exam (likely from diabetes, h/o chemotherapy exposure). She also has a history of bilateral knee replacements and right hip replacement after which she and family noticed worsening of gait imba debbie. 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 Has never locked. Lung nodule (Acute) LEFT , SIZE MONITORED...LAST CHECK: 2 YR AGO Osteoporosis (Acute) SOB (shortness of breath) on exertion Thyroid disease Umbilical hernia (Acute) Surgical History History of cardiac cath 20% lesion in mid LAD, otherwise normal coronaries. History of cholecystectomy + APPENDECTOMY History of colonoscopy with polypectomy History of hip surgery R History of lumbar fusion History of lumpectomy of left breast WITH SAMPLE OF LYMPH NODES History of mastectomy BILATERAL AND RECONSTRUCTION History of radiofrequency ablation procedure for cardiac arrhythmia 2000/SUCCESSFUL History of tonsillectomy and adenoidectomy History of total left knee replacement History of total right hip replacement History of total right knee replacement Family History Mother Anxiety Diabetes Hypertension Myocardial infarction Father Colorectal cancer Diabetes Grandfather Alcohol abuse Social History Preferred Language: Azeri Communication Ability: Effective Insurance Compliance Analyst Required: No Beliefs That Will Affect Care: None Current Living Situation: Spouse Other Information That Helps Us Care for You: No Feels Safe at Home: Yes Smoking Status: Never smoker Do You Dip or Chew Tobacco: No ; Second Hand Exposure: No ; Hx Alcohol Use: No Hx Substance Use: No Review of Systems Review of Systems: Constitutional: No fever, sweats or chills Eyes: No diplopia, no worsening or blurred vision ENT: normal hearing, no trouble swallowing Respiratory: No cough, sputum, dyspnea at rest or on exertion Cardiovascular: No chest pain, tightness or palpitations Abdomen: No pain, nausea, vomiting, diarrhea or constipation Musculoskeletal: No joint pain, calf pain, swelling Neurologic: No weakness, numbness/tingling, or balance problems Psychiatric: No anxiety or depression Skin: No rash or itch Physical Exam Physical Exam: General: awake, alert, no apparent distress, + obese with BMI 32.5 Head: Normocephalic, atraumatic ENT: PERRL, EOMI, no pharyngeal exudate, mucous membranes moist Chest: Clear to auscultation, on room air, no adventitious breath sounds Cardiac: Regular rate and rhythm, no murmur, no JVD, normal peripheral pulses, good capillary refill Abdominal: NABS x 4 quadrants, soft, nontender to palpation, no rebound, guarding or tenderness Back: ANDRE drain in place, dressing C/D/I Extremities: Normal inspection, no peripheral edema or erythema, calfs nontender to palpation Psych: Normal mood and affect Neuro: AAO x 3, strength intact bilaterally and rated 5/5, no motor deficits, speech is clear, no peripheral sensory deficits Skin: no rash or erythema Results & Data ([facility]) Vital Signs (Past 12 Hours) Vital Signs Temp Pulse Pulse Resp BP Pulse Ox 08/27/19 15:58 73 15 84/48 L 98 08/27/19 15:43 36.6 C 76 15 94/61 L 100 08/27/19 15:15 36.3 C L 67 14 115/74 100 08/27/19 15:05 66 15 109/68 95 08/27/19 14:55 76 13 116/63 95 08/27/19 14:45 72 13 114/69 96 08/27/19 14:35 36.9 C 78 12 93/55 L 95 08/27/19 08:26 36.7 C 71 18 114/78 95 PG Care Time/CCT Total # of Minutes Spent Total Time Spent with Patient: Total time spent is greater than 50% in coor dination of care (as documented) at patient's floor/unit and/or counseling patient: Coding Level of Care Code 64679 Inpt Consult Level 3 Diagnoses Spinal stenosis, lumbar region with neurogenic claudication M48.062 Diabetes E11.9 Hypertension I10 Hyperlipidemia E78.5 History of ventricular tachycardia Z86.79 History of TIA (transient ischemic attack) Z86.73 History of breast cancer Z85.3 Hypothyroidism E03.9 Osteoporosis M81.0
[2019-08-27] MEDS ORDERED: GLUCOSE 40% GEL 15 GM TUBE PO PRN (16:25)
[2019-08-27] MEDS ORDERED: DEXTROSE 50% 50 ML SYRINGE IV PRN (16:25)
[2019-08-27] MEDS ORDERED: CARBOHYDRATES FOR HYPOGLYCEMIA PO PRN (16:25)
[2019-08-27] MEDS ORDERED: GLUCAGON FOR INJ 1 MG VIAL SQ PRN (16:25)
[2019-08-27] MEDS ORDERED: GLUCOSE 10 TABS/TUBE PO PRN (16:25)
[2019-08-27] MEDS: INSULIN ASPART 100 UNITS/ML 3 ML PEN SC SCH ×2 (17:28→21:22)
[2019-08-27] MEDS ORDERED: COUGH DROP (SUGAR FREE) LOZ 24 LOZ/1 BOX BUCCAL ONE (19:09)
[2019-08-27] MEDS: CEFAZOLIN 2000MG 2,000 MG/15 ML SYR IV SCH (19:16)
[2019-08-27] MEDS ORDERED: lisinopriL 10 MG TAB PO SCH (21:00)
[2019-08-27] MEDS: PARoxetine HCL 10 MG TAB PO SCH (21:13)
[2019-08-27] MEDS: DOCUSATE SODIUM/SENNA 50/8.6MG TAB PO SCH (21:13)
[2019-08-27] MEDS: TRAMADOL HCL 50 MG TABLET PO PRN (21:20)
[2019-08-27] MEDS: METOPROLOL TARTRATE 25 MG TAB PO SCH (21:21)
[2019-08-28] MEDS: TRAMADOL HCL 50 MG TABLET PO PRN ×5 (01:48→21:06)
[2019-08-28] MEDS: SODIUM CHLORIDE 0.9% 1000ML 1,000 ML IV SCH (01:50)
[2019-08-28] MEDS: CEFAZOLIN 2000MG 2,000 MG/15 ML SYR IV SCH (04:57)
[2019-08-28] MEDS: LEVOTHYROXINE SODIUM 25 MCG TABLET PO SCH (05:49)
[2019-08-28] MEDS: POLYETHYLENE (MIRALAX) 17 GM PACK PO SCH ×3 (05:49→16:42)
[2019-08-28 05:54] LABS: Basophils # (auto) 0.01 K/uL (0-0.2); Basophils % (auto) 0.1 %; Eosinophils # (auto) 0.02 K/uL (0-0.5); Eosinophils % (auto) 0.2 %; Hemoglobin 10.7 g/dL (12.0-16.0); Immature Granulocytes # (auto) 0.03 K/uL (0.00-0.02); Immature Granulocytes % (auto) 0.3 %; Lymphocytes # (auto) 1.08 K/uL (1.2-3.4); Lymphocytes % (auto) 10.7 %; Mean Corpuscular Hgb Conc 33.4 g/dL (32-36); Mean Corpuscular Volume 86.7 fL (80-100); Mean Platelet Volume 9.4 fL (7.4-10.4); Monocytes # (auto) 0.83 K/uL (0.11-0.59); Monocytes % (auto) 8.2 %; Neutrophils # (auto) 8.15 K/uL (1.4-6.5); Neutrophils % (auto) 80.5 %; Platelet Count 217 K/uL (130-400); RDW Coefficient of Variation 14.8 % (11.5-14.5); Red Blood Count 3.69 M/uL (4.2-5.4); White Blood Count 10.12 K/uL (4.8-10.8)
[2019-08-28 06:24] LABS: BUN Creatinine Ratio 16.4 (10-20); Calcium 8.6 mg/dl (8.5-10.1); Creatinine Clr Calc Pharmacy 44.4 ml/min; Est GFR (African American) 55.2; Est GFR (Non-African American) 47.7; Potassium 4.1 mmol/L (3.5-5.1)
[2019-08-28 07:48] LABS: Estimated Average Glucose 123 mg/dl; Hemoglobin A1C 5.9 % (4.5-5.6)
[2019-08-28] MEDS: ACETAMINOPHEN 500 MG TAB PO PRN ×2 (07:58→16:37)
[2019-08-28] MEDS: METOPROLOL TARTRATE 25 MG TAB PO SCH ×2 (08:46→21:54)
[2019-08-28] MEDS: ATORVASTATIN 10 MG TAB PO SCH (08:46)
[2019-08-28] MEDS: CHOLECALCIFEROL 1,000 UNITS 25 MCG TAB PO SCH (08:47)
[2019-08-28] MEDS: MAGNESIUM OXIDE 400 MG TAB PO SCH (08:47)
[2019-08-28] MEDS: LORATADINE 10 MG TAB PO SCH (08:47)
[2019-08-28] MEDS: CALCIUM 600MG + VIT D 400 IU TAB PO SCH (08:47)
[2019-08-28] MEDS: PANTOprazole 40 MG TAB PO SCH (08:47)
[2019-08-28] MEDS: FERROUS SULFATE 325 MG TAB PO SCH (08:47)
[2019-08-28] MEDS: BuPROPion XL 150 MG TABCR PO SCH (08:47)
[2019-08-28] MEDS: ASPIRIN 81 MG ECTAB PO SCH (08:47)
[2019-08-28] MEDS: INSULIN ASPART 100 UNITS/ML 3 ML PEN SC SCH ×4 (08:50→21:55)
[2019-08-28] MEDS ORDERED: CHOLECALCIFEROL 1,000 UNITS 25 MCG TAB PO SCH (09:00)
--- NOTE | 2019-08-28 10:28 | Orthopedic Progress Note ---
Date of Service August 28, 2019 Assessment & Plan (1) Lumbar stenosis with neurogenic claudication: She will continue with physical therapy today monitor her ANDRE output anticipate discharge home Friday. Present on Admission?: Yes Admission and Anticipated Discharge Date Admission Date: August 27, 2019 Subjective Back pain controlled leg symptoms markedly improved. Physical Exam Physical Exam: Patient is in the chair at the bedside is good strength testing. Appears comfortable. Results & Data ([facility]) Vital Signs (Past 12 Hours) Vital Signs Temp Pulse Resp BP Pulse Ox 08/28/19 06:58 36.6 C 75 16 104/64 99 08/28/19 03:07 36.8 C 88 20 106/66 94 08/27/19 23:14 36.7 C 85 16 98/61 L 94
--- NOTE | 2019-08-28 17:21 | Hospitalist Progress Note ---
Date of Service August 28, 2019 Assessment & Plan (1) Spinal stenosis, lumbar region with neurogenic claudication: - S/p lumbar decompression fusion by Dr. Tello - Pain management, DVT prophylaxis and bowel regimen per the primary team - PT/OT consults, case management to assist with discharge to [facility] per patient request - Oral intake as tolerated - Encourage fluids and use of lozenges for dry mouth (2) Diabetes: - HbA1C 5.9 - ISS with Accu-Cheks ACHS, loosened control given good A1C and glucose values here - She should be discharged on her usual metformin regimen (3) Hypertension: BP now improved -Continue metoprolol 12.5 mg twice daily, ASA 81 mg daily -Restarted her lisinopril 10mg HS (4) Hyperlipidemia: -Continue atorvastatin 10 mg daily (5) History of ventricular tachycardia: - History of such as per problem list although I suspect this was actually SVT, status post ablation which was successful (6) History of TIA (transient ischemic attack): - History of such in 2014. Continue ASA/atorvastatin (7) History of breast cancer: - History of such in 2007, in remission, status post left lumpectomy, bilateral mastectomy, chemo and radiation, completed Herceptin x2 years following diagnosis. (8) Hypothyroidism: -Continue levothyroxine 25 mcg daily, TSH WNL in June (9) Osteoporosis: -Continue vitamin D supplementation CODE: FULL CODE DISPO: From home Thank you for involving us in the care of Mrs. Palacio. Please do not hesitate to call with questions or concerns. Medicine service will sign off at this time. Admission and Anticipated Discharge Date Admission Date: August 27, 2019 Subjective No acute events overnight. Patient reports no lightheadedness, chest pain or shortness of breath. Review of Systems Review of Systems: All systems reviewed & are unremarkable except as noted in HPI & below Physical Exam Constitutional: WD/WN, vitals as above no acute distress Eyes: + anicteric sclerae; normal pupil size ENMT: external ear and nose normal, oropharynx normal Neck: normal visual inspection and trachea midline Respiratory: normal respiratory effort, lungs clear to auscultation Cardiovascular: RRR, no murmur, no edema Gastrointestinal (Abdomen): Inspection/Auscultation: normal bowel sounds Percussion/Palpation: abdomen soft; abdomen nontender, no guarding and abdomen not rigid Neurologic: moves all extremities and awake; no focal motor deficits and not confused Bilateral ankle dorsi/plantarflexion 10/11 Psychiatric: A+Ox3, euthymic affect Results & Data ([facility]) Vital Signs (Past 12 Hours) Vital Signs Temp Pulse Resp BP Pulse Ox 08/28/19 15:15 36.6 C 83 16 130/74 98 08/28/19 11:34 36.4 C L 87 18 126/78 98 08/28/19 06:58 36.6 C 75 16 104/64 99 PG Care Time/CCT Total # of Minutes Spent Total Time Spent with Patient: Total time spent is greater than 50% in coordination of care (as documented) at patient's floor/unit and/or counseling patient: Coding Level of Care Code 17612 Subseq Hosp Care Lvl 1 Diagnoses Spinal stenosis, lumbar region with neurogenic claudication M48.062 Diabetes E11.9 Diabetes mellitus complication status: without complication Diabetes mellitus watermaster insulin use: without senior care use Diabetes mellitus type: type 2 Hypertension I10 Hypertension type: essential hypertension Hyperlipidemia E78.5 Hyperlipidemia type: unspecified History of ventricular tachycardia Z86.79 History of TIA (transient ischemic attack) Z86.73 History of breast cancer Z85.3 Hypothyroidism E03.9 Hypothyroidism type: unspecified Osteoporosis M81.0 Osteoporosis type: unspecified Presence of current pathological fracture: without current pathological fracture (1) Diabetes Diabetes mellitus complication status: without complication Diabetes mellitus watermaster insulin use: without watermaster use Diabetes mellitus type: type 2 Qualified Code(s): E11.9 - Type 2 diabetes mellitus without complications (2) Osteoporosis Osteoporosis type: unspecified Presence of current pathological fracture: without current pathological fracture Qualified Code(s): M81.0 - Age-related osteoporosis without current pathological fracture (3) Hyperlipidemia Hyperlipidemia type: unspecified Qualified Code(s): E78.5 - Hyperlipidemia, unspecified (4) Hypothyroidism Hypothyroidism type: unspecified Qualified Code(s): E03.9 - Hypothyroidism, unspecified (5) Hypertension Hypertension type: essential hypertension Qualified Code(s): I10 - Essential (primary) hypertension
[2019-08-28] MEDS: PARoxetine HCL 10 MG TAB PO SCH (21:53)
[2019-08-28] MEDS: lisinopriL 10 MG TAB PO SCH (21:53)
[2019-08-28] MEDS: DOCUSATE SODIUM/SENNA 50/8.6MG TAB PO SCH (21:55)
[2019-08-29] MEDS: POLYETHYLENE (MIRALAX) 17 GM PACK PO SCH ×5 (00:03→23:25)
[2019-08-29] MEDS: OXYCODONE HCL IR 5 MG TAB (IMMEDIATE RELEASE) PO PRN ×3 (01:07→23:25)
[2019-08-29] MEDS: LEVOTHYROXINE SODIUM 25 MCG TABLET PO SCH (06:04)
[2019-08-29] MEDS: METOPROLOL TARTRATE 25 MG TAB PO SCH ×2 (07:40→20:32)
[2019-08-29] MEDS: ATORVASTATIN 10 MG TAB PO SCH (07:40)
[2019-08-29] MEDS: BuPROPion XL 150 MG TABCR PO SCH (07:40)
[2019-08-29] MEDS: PANTOprazole 40 MG TAB PO SCH (07:40)
[2019-08-29] MEDS: FERROUS SULFATE 325 MG TAB PO SCH ×2 (07:40→07:44)
[2019-08-29] MEDS: MAGNESIUM OXIDE 400 MG TAB PO SCH (07:40)
[2019-08-29] MEDS: CHOLECALCIFEROL 1,000 UNITS 25 MCG TAB PO SCH (07:40)
[2019-08-29] MEDS: CALCIUM 600MG + VIT D 400 IU TAB PO SCH (07:41)
[2019-08-29] MEDS: LORATADINE 10 MG TAB PO SCH (07:41)
[2019-08-29] MEDS: ASPIRIN 81 MG ECTAB PO SCH (07:41)
[2019-08-29] MEDS: INSULIN ASPART 100 UNITS/ML 3 ML PEN SC SCH ×4 (07:45→20:33)
[2019-08-29] MEDS: TRAMADOL HCL 50 MG TABLET PO PRN ×2 (07:49→12:55)
--- NOTE | 2019-08-29 11:12 | Orthopedic Progress Note ---
Date of Service August 29, 2019 Assessment & Plan (1) Spinal stenosis, lumbar region with neurogenic claudication: This time we will continue physical therapy monitor her ANDRE output anticipate discharge home tomorrow. Present on Admission?: Yes Admission and Anticipated Discharge Date Admission Date: August 27, 2019 Subjective Back pain controlled leg symptoms improved. Physical Exam Physical Exam: Patient is good strength testing appears comfortable. Results & Data ([facility]) Vital Signs (Past 12 Hours) Vital Signs Temp Pulse Resp BP Pulse Ox 08/29/19 06:05 36.9 C 91 H 16 112/67 93 08/28/19 23:18 36.8 C 80 14 123/80 99
[2019-08-29] MEDS: ACETAMINOPHEN 500 MG TAB PO PRN (15:26)
[2019-08-29] MEDS: lisinopriL 10 MG TAB PO SCH (20:34)
[2019-08-29] MEDS: PARoxetine HCL 10 MG TAB PO SCH (20:34)
[2019-08-29] MEDS: DOCUSATE SODIUM/SENNA 50/8.6MG TAB PO SCH (20:34)
[2019-08-30 06:23] VITALS: BP 106/68; TEMP 98.2; O2SAT 93
[2019-08-30] MEDS: LEVOTHYROXINE SODIUM 25 MCG TABLET PO SCH (06:37)
[2019-08-30] MEDS: ACETAMINOPHEN 500 MG TAB PO PRN ×2 (06:37→14:08)
[2019-08-30] MEDS: POLYETHYLENE (MIRALAX) 17 GM PACK PO SCH ×2 (06:38→13:59)
[2019-08-30] MEDS: LORATADINE 10 MG TAB PO SCH (07:30)
[2019-08-30] MEDS: CHOLECALCIFEROL 1,000 UNITS 25 MCG TAB PO SCH (07:30)
[2019-08-30] MEDS: ASPIRIN 81 MG ECTAB PO SCH (07:30)
[2019-08-30] MEDS: MAGNESIUM OXIDE 400 MG TAB PO SCH (07:30)
[2019-08-30] MEDS: BuPROPion XL 150 MG TABCR PO SCH (07:31)
[2019-08-30] MEDS: PANTOprazole 40 MG TAB PO SCH (07:31)
[2019-08-30] MEDS: METOPROLOL TARTRATE 25 MG TAB PO SCH (07:31)
[2019-08-30] MEDS: ATORVASTATIN 10 MG TAB PO SCH (07:32)
[2019-08-30] MEDS: INSULIN ASPART 100 UNITS/ML 3 ML PEN SC SCH ×2 (07:35→14:01)
[2019-08-30] MEDS: CALCIUM 600MG + VIT D 400 IU TAB PO SCH (07:54)
[2019-08-30] MEDS: FERROUS SULFATE 325 MG TAB PO SCH (07:54)
--- NOTE | 2019-08-30 10:06 | Discharge Summary ---
Date of Service August 30, 2019 Admission HPI Per Admitting Provider This is a 69-year-old female known to me that presents with worsening back and bilateral leg pain. After failing extensive course of nonoperative care is here for surgical intervention. Principal Diagnosis Lumbar spinal stenosis with neurogenic claudication Discharge Data Allergies Allergy/AdvReac Type Severity Reaction Status Date / Time adhesive Allergy Unknown RASH Verified 08/27/19 08:21 morphine Allergy Unknown HIVES Verified 08/27/19 08:21 chlorhexidine AdvReac Unknown Itching/Bur Verified 08/27/19 08:21 ophelia nitroglycerin AdvReac Unknown SEVERE Verified 08/27/19 08:21 HEADACHE [place] Allergy Unknown NASAL Uncoded 08/16/19 11:26 CONGESTION Consultations 08/27/19 15:40 Consult Case Management - Discharge Planning Routine Consult Hospitalist Routine Procedures Performed Operation Date: 08/27/19 10:15 Actual Procedures p L2-L3 Decompression And Fusion, Spinal Cord Monitoring(Bilateral) - Surjit Tello DO s L3-S1 Hardware Removal(Bilateral) - Surjit Tello DO Ordered Studies 08/27/19 10:15 FL fluoroscopy <1hr Routine FL lumbar spine 2-3V Routine Hospital Course (1) Spinal stenosis, lumbar region with neurogenic claudication: Patient went lumbar decompression fusion tolerated this well was taken to orthopedic floor postoperative. Postop day #1 she was up and ambulating leg symptoms markedly improved strength improving. She progressed to postop day #2 ANDRE drain decreasing appropriately. On postop day 3 pain was controlled excellent strength testing subsequently discharged home. Discharge orders instructions from the chart for further review. Total Time Total Time Spent Total Time Spent (In Minutes): 20 minutes Discharge Plan Discharge Items Patient Disposition: Home - Self-Care Reason For Visit: LUMBAR SPINAL STENOSIS WO NEUROGENIC CLAUDICATION Discharge Diagnosis: Lumbar spinal stenosis with neurogenic claudication Activity: As commented below Non-emergency contact: Primary Care Provider Call non-emergency contact if: you have any medication questions Follow-up/Referrals: Stephenie Ortiz PA-C [Primary Care Provider] - Diet: Regular Addtl Attending Provider Instructions: ACTIVITY RECOMMENDATIONS: SELF CARE INSTRUCTIONS AFTER THORACIC/LUMBAR FUSIONS 1. You may walk to your tolerance. It is good exercise for your legs and back. Expect some back and intermittent leg aches and pains. 2. You may perform "counter-top" level activities (make a sandwich, jessica with a project, etc.). 3. No bending or lifting of more than 10 pounds or back twisting of any nature (roll like a log when turning in bed). 4. You may ride in a car for 20-30 minutes at a time. No driving until after your first visit with your doctor. 5. Frequent changes of position and restricting sitting to 30 minutes at a time will help limit the amount of back spasms and stiffness you may experience. 6. You may discontinue the use of ambulatory aids (cane, crutches, etc.) once your strength and confidence allow. 7. You may machine engineer the shower and let water strike your incision when you arrive home at least once daily. Do not take a tub bath, sit in a hot tub or go into a swimming pool until after your first recheck in the office. SPECIAL CARE INSTRUCTIONS: VERY IMPORTANT TO READ AND REVIEW A. Your surgical incision has been closed with a cosmetic suture under the skin that will dissolve in about 6 weeks. In 14 days, you can use a pair of clean scissors and cut the suture that is left outside of the skin at the ends of your incision. 1. The small skin tapes can be removed 7 days after surgery if they have not fallen off by that point. 2. You may keep the wound open to air as much as possible to promote healing after post-op day number 5 unless told otherwise by your doctor. 3. If you think the wound looks like it is becoming infected (redness or worsening drainage) and/or you are experiencing fever, chill or worsening back pain and muscle spasms, contact the office so that we may evaluate you as soon as possible. B. Complications are uncommon, but please contact us if you have any signs or symptoms of: 1. wound infection (fever higher than 102.5 degrees F, redness, separation of wound, drainage, or increasing pain from the incision) 2. blood clots in legs (pain, swelling, redness and warmth in legs) 3. urinary tract infection (fever higher than 102.5 degrees F, burning upon urination or increased frequency of urination) 4. nerve problems (inability to walk on your toes or heels, numbness, loss of bowel or bladder control) 5. any other symptoms that concern you C. Please call the office at if you have any concerns or questions about your operation or recovery. D. No smoking! Smoking drastically decreases the chance of a solid fusion. E. Do not take any anti-inflammatory medications (Indocin, Advil, Motrin, Aspirin, Naprosyn, etc.) as these may inhibit the chance of a solid fusion. Tylenol is okay to take for pain. MANAGING PAIN AFTER SPINAL SURGERY 1. Narcotic medication is intended for short-term use and will be provided for surgical pain. Surgical pain usually lasts for a period of 4-6 weeks. Narcotic medication includes Percocet, Vicodin, Darvocet, Tylenol #3 or Lortab. 2. Longer-term pain is more appropriately treated with non-narcotic medication such as Tylenol ES. 3. Muscle spasm is not appropriately treated with narcotics. Muscle relaxers such as Soma, Flexeril or Skelaxin can be used along with Tylenol ES. 4. Remember that we all live with some "aches and pains". This is not unusual or uncommon after an injury or as we get older. a. Back pain is expected and may include muscle spasms for 4 to 6 weeks after surgery. The pain should gradually improve. If the pain worsens for no apparent reason, please contact the office. b. Intermittent leg pain may also be experienced and should not be concerned about unless it worsens for no apparent reason. If so, please contact the office. 5. We will provide appropriate medication within the normal guidelines of their prescribed use. We will also be very cautious and aware of potential abuse and extended duration of patients' medication needs. a. Pain medications are for your comfort and to assist with sleep and rest so that the tissue can heal. They are not provided in order to return to normal activity and should not be used through the day. To do so or worsening pain at night can result from ongoing tissue damage and development of tolerance to the prescribed medicine. 6. Please allow 2-3 days to process refills. Prescriptions will not be mailed but must be picked up at the office. FOLLOW UP VISIT: Keep your scheduled follow-up appointment. Any questions, please call the office at . Pending Studies at Discharge: No Stand-Alone Forms: My OneTouchEMR, Smoking Cessation Medications and DC Order Prescriptions: New tramadol 50 mg tablet 50 mg PO Q6H PRN (Reason: pain, moderate) Qty: 20 RF: 0 oxycodone 5 mg tablet 5 mg PO Q6H PRN (Reason: pain, severe) Qty: 20 RF: 0 Continued (DME) blood-glucose meter [OneTouch Ultra2 Meter[place] [facility] [place] Dose Instructions .ROUTE .MEDSUPPLY Qty: 1 RF: 0 aspirin 81 mg tablet,delayed release (DR/EC) 81 mg PO DAILY Qty: 90 RF: 3 loratadine 10 mg tablet 10 mg PO DAILY Qty: 90 RF: 3 (DME) OneTouch Ultra Blue Test Strip strip See Dose Instructions .ROUTE .MEDSUPPLY Qty: 50 RF: 3 (DME) lancets [OneTouch Delica Lancets] [facility] See Dose Instructions .ROUTE .MEDSUPPLY Qty: 100 RF: 3 bupropion HCl 150 mg tablet extended release 24 hr 150 mg PO QAM Qty: 90 RF: 0 paroxetine HCl 30 mg tablet 30 mg PO HS Qty: 90 RF: 1 metformin 500 mg tablet 500 mg PO BID Qty: 180 RF: 1 lisinopril 10 mg tablet 10 mg PO HS Qty: 90 RF: 1 levothyroxine 25 mcg tablet 25 mcg PO QAM Qty: 90 RF: 1 atorvastatin 10 mg tablet 10 mg PO DAILY RF: 0 omeprazole 20 mg capsule,delayed release(DR/EC) 20 mg PO QAM RF: 0 metoprolol tartrate 25 mg tablet 12.5 mg PO BID RF: 0 ferrous sulfate [iron] 325 mg (65 mg iron) Tablet 325 mg PO DAILY RF: 0 magnesium 200 mg Tablet 800 mg PO DAILY RF: 0 calcium carbonate-vitamin D3 [Calcium 600 + D(3)] 600 mg(1,500mg) -400 unit Tablet 2 tab PO DAILY RF: 0 cholecalciferol (vitamin D3) [Vitamin D3] 50 mcg (2,000 unit) Tablet 50 mcg PO DAILY RF: 0 Discontinued meloxicam 7.5 mg tablet 7.5 mg PO DAILY RF: 0 Discharge Orders: Discharge Order (Routine); Ordered 08/30/19 Ordered By: Surjit Tello Admission Data Admit Date/Time: 08/27/19 14:33 Attending Provider: Surjit Tello Admit Provider: Surjit Tello Primary Care Provider: Stephenie Ortiz Other Providers: Beth Guerrero ; Diego Stoddard
[2019-08-30 14:42] VITALS: PULSE 78
== END 2019-08-30 15:43 | disposition home or self-care (01) | DRG 455 ==
LOC: ASU 07:52 → 3E 14:33

== ENCOUNTER 2019-10-07 08:19 | Inpatient (IN) ==
--- NOTE | 2019-10-01 08:12 | History & Physical Report ---
Date of Service October 01, 2019 Assessment & Plan (1) Fracture of lumbar spine without lesion of spinal cord with delayed healing: At this time the patient has progressive instability and obvious fracture at L4-L5 fusion mass. Subsequently recommending urgent stabilization before she has more progressive neurologic deterioration and incapacitating pain increasing her risk of a nonunion blood clots and permanent neurologic deficit. Surgery would require a lumbar fusion across the L4-5 level. Benefits pros cons alternatives outlined in detail. Patient understands and agrees. Present on Admission?: Yes History of Present Illness Chief Complaint: Severe limiting back pain Primary Care Provider: Stephenie Ortiz PA-C This is a 69-year-old female that presents with worsening severe limiting back pain. She is status post lumbar decompression fusion L2-3. She did very nicely for approximately 2 to 3-week weeks postop and then had significant decline in status with marked inability to ambulate and transfer from bed to chair and chair to ambulation. Allergies Allergy/AdvReac Type Severity Reaction Status Date / Time adhesive Allergy Unknown RASH Verified 08/27/19 08:21 morphine Allergy Unknown HIVES Verified 08/27/19 08:21 chlorhexidine AdvReac Unknown Itching/Bur Verified 08/27/19 08:21 ophelia nitroglycerin AdvReac Unknown SEVERE Verified 08/27/19 08:21 HEAD[place]HE [place] Allergy Unknown NASAL Uncoded 08/16/19 11:26 CONGESTION Home Medications Home Medications Medication Instructions Recorded Confirmed Type aspirin 81 mg tablet,delayed 81 mg PO DAILY #90 tab 01/22/19 08/27/19 Rx release blood sugar diagnostic #50 ea 01/22/19 08/16/19 Rx blood-glucose meter #1 ea 01/22/19 08/16/19 History lancets 33 gauge #100 ea 01/22/19 08/16/19 Rx loratadine 10 mg tablet 10 mg PO DAILY #90 tab 01/22/19 08/27/19 Rx atorvastatin 10 mg PO DAILY 08/06/19 08/27/19 History calcium carbonate-vitamin D3 2 tab PO DAILY 08/06/19 08/27/19 History [Calcium 600 + D(3)] cholecalciferol (vitamin D3) 50 mcg PO DAILY 08/06/19 08/27/19 History [Vitamin D3] ferrous sulfate [iron] 325 mg PO DAILY 08/06/19 08/27/19 History magnesium 800 mg PO DAILY 08/06/19 08/27/19 History metoprolol tartrate 12.5 mg PO BID 08/06/19 08/27/19 History omeprazole 20 mg PO QAM 08/06/19 08/27/19 History levothyroxine 25 mcg tablet 25 mcg PO QAM #90 tab 08/16/19 08/27/19 Rx lisinopril 10 mg tablet 10 mg PO HS #90 tab 08/16/19 08/27/19 Rx metformin 500 mg tablet 500 mg PO BID #180 tab 08/16/19 08/27/19 Rx paroxetine HCl 30 mg tablet 30 mg PO HS #90 tab 08/16/19 08/27/19 Rx oxycodone 5 mg PO Q6H PRN #20 tab 08/30/19 Rx tramadol 50 mg PO Q6H PRN #30 tab 08/30/19 Rx bupropion HCl 150 mg tablet,12 hr 150 mg PO BID #60 ea 09/23/19 09/23/19 Rx sustained-release lorazepam 0.5 mg tablet See Rx Instructions PO DAILY PRN 09/23/19 09/23/19 Rx #30 tab Past Med/Surg History Social History Preferred Language: Hungarian Communication Ability: Effective Cheese Grader Required: No Beliefs That Will Affect Care: None Current Living Situation: Spouse Feels Safe at Home: Yes Smoking Status: Never smoker Second Hand Exposure: No ; Hx Alcohol Use: No Hx Substance Use: No Physical Exam Physical Exam: Patient is alert and oriented Patient is in obvious distress when I have her stand from her chair. It is severe and incapacitating to her she must immediately sit. On bench exam she does exhibit a 4/5 bilateral quadriceps and dorsiflexion 5/5 plantar flexion. Sensory appears to be symmetric and intact. Incision is well-healed. Heart is regular in rhythm Lungs clear to auscultation Results & Data Diagnostic Findings CAT scan of the lumbar spine available for review demonstrates instrumented fusion L2-3 with evidence of anterior listhesis progressive at L4-5 with evidence of fracture across the fusion mass at L4-5. All other levels appear to be healed and stabilized.
--- NOTE | 2019-10-04 14:38 | Anesthesiology Consultation ---
Date of Service October 04, 2019 Assessment & Plan (1) Encounter for pre-operative examination: Chart Review Chart Review: Acceptable Risk for Surgery and Patient NOT seen in Pre Admission Testing Consults Requested none History Surgery Operation Date: 10/07/19 07:45 Proposed Procedures p L4-L5 Fusion - Surjit Tello DO Height/Weight Height: 5 ft 2.5 in Weight: 74.843 kg Allergies Allergy/AdvReac Type Severity Reaction Status Date / Time morphine Allergy Intermediate HIVES Verified 10/04/19 08:53 adhesive Allergy Mild RASH Verified 10/04/19 08:53 chlorhexidine Allergy Mild Itching/Bur Verified 10/04/19 08:53 ophelia nitroglycerin AdvReac Intermediate SEVERE Verified 10/04/19 08:53 [place]HE [place] Allergy Mild NASAL Uncoded 10/04/19 08:53 CONGESTION Medications Home Medications Medication Instructions Recorded Confirmed Last Taken blood sugar diagnostic #50 ea 01/22/19 08/16/19 Unknown blood-glucose meter #1 ea 01/22/19 08/16/19 Unknown lancets 33 gauge #100 ea 01/22/19 08/16/19 Unknown atorvastatin 10 mg PO DAILY 08/06/19 10/04/19 Unknown calcium carbonate-vitamin D3 1 tab PO BID 08/06/19 10/04/19 08/26/19 [Calcium 600 + D(3)] cholecalciferol (vitamin D3) 50 mcg PO QAM 08/06/19 10/04/19 08/26/19 [Vitamin D3] ferrous sulfate [iron] 325 mg PO DAILY 08/06/19 10/04/19 08/26/19 magnesium 800 mg PO DAILY 08/06/19 10/04/19 08/26/19 metoprolol tartrate 12.5 mg PO BID 08/06/19 10/04/19 08/27/19 06:00 omeprazole 20 mg PO QAM 08/06/19 10/04/19 08/27/19 06:00 levothyroxine 25 mcg tablet 25 mcg PO QAM #90 tab 08/16/19 10/04/19 08/27/19 06:00 lisinopril 10 mg tablet 10 mg PO HS #90 tab 08/16/19 10/04/19 08/26/19 20:00 metformin 500 mg tablet 500 mg PO BID #180 tab 08/16/19 10/04/19 08/27/19 06:00 paroxetine HCl 30 mg tablet 30 mg PO HS #90 tab 08/16/19 10/04/19 08/26/19 20:00 oxycodone 5 mg PO Q6H PRN #20 tab 08/30/19 10/04/19 Unknown tramadol 50 mg PO Q6H PRN #30 tab 08/30/19 10/04/19 Unknown bupropion HCl 150 mg tablet,12 hr 150 mg PO BID #60 ea 09/23/19 10/04/19 Unknown sustained-release lorazepam 0.5 mg tablet See Rx Instructions PO DAILY PRN 09/23/19 10/04/19 Unknown #30 tab acetaminophen [Acetaminophen Extra 1,000 mg PO Q6H PRN 10/04/19 10/04/19 Unknown Strength] aspirin 81 mg PO QAM 10/04/19 10/04/19 Unknown loratadine 10 mg PO QAM 10/04/19 10/04/19 Unknown Past Medical History Medical History Anxiety (Acute) Back problem Diabetes (Acute) Esophageal reflux Fatty liver Gait abnormality Per neurology 06/2019: "likely multifactorial but suspect largest contributor is significant neuropathy on exam (likely from diabetes, h/o chemotherapy exposure). She also has a history of bilateral knee replacements and right hip replacement after which she and family noticed worsening of gait imba debbie. 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 Has never locked. Lung nodule (Acute) LEFT , SIZE MONITORED...LAST CHECK: 2 YR AGO Osteoporosis (Acute) SOB (shortness of breath) on exertion Thyroid disease Umbilical hernia (Acute) Past Family History Family History Mother Diabetes Anxiety Myocardial infarction Hypertension Father Diabetes Colorectal cancer Grandfather Alcohol abuse Daughter Family history of reaction to anesthesia difficulty waking Past Surgical History Surgical History History of cardiac cath after 2006, not sure when @ [facility] [place] 20% lesion in mid LAD, otherwise normal coronaries. History of cholecystectomy + APPENDECTOMY History of colonoscopy with polypectomy History of esophagogastroduodenoscopy (EGD) History of hip surgery R History of lumbar fusion x2---recently 08/27/19 History of lumpectomy of left breast WITH SAMPLE OF LYMPH NODES History of mastectomy BILATERAL AND RECONSTRUCTION History of radiofrequency ablation procedure for cardiac arrhythmia 1999/ History of tonsillectomy and adenoidectomy History of total left knee replacement History of total right hip replacement History of total right knee replacement Social History Smoking Status: Never smoker Do You Dip or Chew Tobacco: No Hx Alcohol Use: Yes Alcohol type: wine alcohol intake frequency: other Alcohol Intake Frequency Comment: very rarely Hx Substance Use: No substance use type: does not use Testing Laboratory Results Laboratory Tests 08/12/19 08/28/19 08/28/19 12:24 05:35 05:35 WBC 10.12 Hgb 10.7 L Plt Count 217 PT 10.5 INR 1.0 APTT 24.7 Sodium 138 Potassium 4.1 Chloride 108 H Carbon Dioxide 23 BUN 19 H Creatinine 1.16 Glucose 128 H Hemoglobin A1c 08/28/19 05:35 WBC Hgb Plt Count PT INR APTT Sodium Potassium Chloride Carbon Dioxide BUN Creatinine Glucose Hemoglobin A1c 5.9 H Electrocardiogram Date: 08/12/19 Normal sinus rhythm, rate 63 bpm Low voltage QRS Borderline ECG When compared with ECG of 02-JAN-2016 11:26, No significant change was found Confirmed by Darinel Soto ([id number]) on 08/12/2019 10:10:47 PM Chest X-Ray Date: 08/12/19 Findings: + NAD
[~2019-10-07 08:19] MED LIST changes: +CEFAZOLIN 1000MG 1,000 MG/7.5 ML SYR IV SCH; -CEFAZOLIN 2000MG 2,000 MG/15 ML SYR IV SCH
[2019-10-07] MEDS ORDERED: MIDAZOLAM HCL 1 MG/ML 2ML VIAL ONE (08:53)
[2019-10-07] MEDS ORDERED: fentaNYL citrate 100 MCG/2 ML VIAL ONE (08:53)
--- NOTE | 2019-10-07 09:32 | History & Physical Bridge Note ---
Date of Service October 07, 2019 History & Physical Bridge Note I have examined the patient, reviewed the History & Physical and in the interval since the performance of the History & Physical I have noted the following changes of clinical significance: no changes noted
[2019-10-07] MEDS ORDERED: BACITRACIN INJ 50,000 UNIT VIAL ONE (10:03)
[2019-10-07] MEDS ORDERED: BUPIVACAINE/EPINEPHRINE 0.5% MPF 1:200,000 10 ML VIAL ONE (10:03)
--- NOTE | 2019-10-07 10:25 | Anesthesiology Consultation ---
Date of Service October 07, 2019 GERD NIDDM HTN Hypothyroidism Hx of TIA Assessment & Plan (1) Encounter for pre-operative examination: Chart Review Chart Review: Acceptable Risk for Surgery and Patient NOT seen in Pre Admission Testing Consults Requested none ASA ASA3 Proposed Anesthesia Anesthesia Type: General Risk / Benefits Reviewed With: PT / POA / Parent / Guardian, Accepts Plan and Informed Consent Obtained History Surgery Operation Date: 10/07/19 09:55 Proposed Procedures p L4-L5 Fusion - Surjit Tello DO Height/Weight Height: 5 ft 2.5 in Weight: 72.8 kg Allergies Allergy/AdvReac Type Severity Reaction Status Date / Time morphine Allergy Intermediate HIVES Verified 10/07/19 08:40 adhesive Allergy Mild RASH Verified 10/07/19 08:40 chlorhexidine Allergy Mild Itching/Bur Verified 10/07/19 08:40 ophelia nitroglycerin AdvReac Intermediate SEVERE Verified 10/07/19 08:40 HEADACHE [place] Allergy Mild NASAL Uncoded 10/07/19 08:40 CONGESTION Medications Home Medications Medication Instructions Recorded Confirmed Last Taken blood sugar diagnostic #50 ea 01/22/19 08/16/19 Unknown blood-glucose meter #1 ea 01/22/19 08/16/19 Unknown lancets 33 gauge #100 ea 01/22/19 08/16/19 Unknown atorvastatin 10 mg PO DAILY 08/06/19 10/07/19 10/06/19 06:15 calcium carbonate-vitamin D3 1 tab PO BID 08/06/19 10/04/19 10/05/19 09:00 [Calcium 600 + D(3)] cholecalciferol (vitamin D3) 50 mcg PO QAM 08/06/19 10/04/19 10/05/19 09:00 [Vitamin D3] ferrous sulfate [iron] 325 mg PO DAILY 08/06/19 10/04/19 10/05/19 09:00 magnesium 800 mg PO DAILY 08/06/19 10/07/19 10/05/19 09:00 metoprolol tartrate 12.5 mg PO BID 08/06/19 10/04/19 10/07/19 06:15 omeprazole 20 mg PO QAM 08/06/19 10/04/19 10/07/19 06:15 levothyroxine 25 mcg tablet 25 mcg PO QAM #90 tab 03/02/2610/07/19 10/06/19 06:15 lisinopril 10 mg tablet 10 mg PO HS #90 tab 08/16/19 10/07/19 10/06/19 22:00 metformin 500 mg tablet 500 mg PO BID #180 tab 08/16/19 10/07/19 10/04/19 09:00 paroxetine HCl 30 mg tablet 30 mg PO HS #90 tab 08/16/19 10/07/19 10/06/19 22:00 tramadol 50 mg PO Q6H PRN #30 tab 08/30/19 10/07/19 Unknown bupropion HCl 150 mg tablet,12 hr 150 mg PO BID #60 ea 09/23/19 10/04/19 10/07/19 06:15 sustained-release lorazepam 0.5 mg tablet See Rx Instructions PO DAILY PRN 09/23/19 10/07/19 10/06/19 16:00 #30 tab acetaminophen [Acetaminophen Extra 1,000 mg PO Q6H PRN 10/04/19 10/07/19 10/06/19 16:00 Strength] aspirin 81 mg PO QAM 10/04/19 10/04/19 10/07/19 06:15 loratadine 10 mg PO QAM 10/04/19 10/07/19 10/06/19 06:15 Active Medications Generic Name Dose Route Start Last Admin Trade Name Freq PRN Reason Stop Dose Admin Acetaminophen 1,000 mg 10/07/19 06:00 10/07/19 09:11 Tylenol PO 10/07/19 18:00 1,000 mg PREOP TRACE Administration Celecoxib 200 mg 10/07/19 06:00 10/07/19 09:11 Celebrex PO 10/07/19 18:00 200 mg PREOP TRACE Administration Gabapentin 300 mg 10/07/19 06:00 10/07/19 09:11 Neurontin PO 10/07/19 18:00 300 mg PREOP TRACE Administration Lactated Ringer's 1,000 mls @ 15 mls/hr 10/07/19 06:00 10/07/19 09:14 Lr IV 10/08/19 05:59 15 mls/hr .Q24H TRACE Administration NPO Date Last Intake of Fluids: 10/07/19 Time Last Intake of Fluids: 06:15 Last Intake of Fluids Comment: sip with meds Date Last Intake of Solids: 10/06/19 Time Last Intake of Solids: 17:00 Past Medical History Medical History Anxiety (Acute) Back problem Diabetes (Acute) Esophageal reflux Fatty liver Gait abnormality Per neurology 06/2019: "likely multifactorial but suspect largest contributor is significant neuropathy on exam (likely from diabetes, h/o chemotherapy exposure). She also has a history of bilateral knee replacements and right hip replacement after which she and family noticed worsening of gait imbalance. 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 Has never locked. Lung nodule (Acute) LEFT , SIZE MONITORED...LAST CHECK: 2 YR AGO Osteoporosis (Acute) SOB (shortness of breath) on exertion Thyroid disease Umbilical hernia (Acute) Exercise / Class Metabolic Activity II 4-5 Yardwork/Stairs/Walk up hill Past Family History Family History Mother Diabetes Anxiety Myocardial infarction Hypertension Father Diabetes Colorectal cancer Grandfather Alcohol abuse Daughter Family history of reaction to anesthesia difficulty waking Past Surgical History Surgical History History of cardiac cath after 2006, not sure when @ [facility] [place] 20% lesion in mid LAD, otherwise normal coronaries. History of cholecystectomy + APPENDECTOMY History of colonoscopy with polypectomy History of esophagogastroduodenoscopy (EGD) History of hip surgery R History of lumbar fusion x2---recently 08/27/19 History of lumpectomy of left breast WITH SAMPLE OF LYMPH NODES History of mastectomy BILATERAL AND RECONSTRUCTION History of radiofrequency ablation procedure for cardiac arrhythmia 2000/SUCCESSFUL History of tonsillectomy and adenoidectomy History of total left knee replacement History of total right hip replacement History of total right knee replacement Past Anesthesia History No Hx of Anesthesia Complications and No Family Hx of Anesthesia Complications History of PONV No Hx of PONV and No Hx of Motion Sickness Social History Smoking Status: Never smoker Do You Dip or Chew Tobacco: No Hx Alcohol Use: Yes Alcohol type: wine alcohol intake frequency: other Alcohol Intake Frequency Comment: very rarely Hx Substance Use: No substance use type: does not use Physical Exam Vital Signs Last Vital Signs Temp 36.8 C 10/07/19 08:58 Pulse 76 10/07/19 08:58 Resp 16 10/07/19 08:58 BP 95/70 L 10/07/19 08:58 Pulse Ox 98 10/07/19 08:58 ENMT Mouth: no dentition abnormality Thyromental Distance: > or= 3.5 Finger Breadths Mallampati Class: II Neck normal visual inspection Respiratory normal respiratory effort Auscultation: lungs clear to auscultation bilaterally Cardiovascular Rate/Rhythm: regular rate and regular rhythm Psychiatric Orientation: alert Testing Laboratory Results 10/07/19 08:40 POC Glucose 123 H
[2019-10-07] MEDS ORDERED: DEXAMETHASONE SOD INJ 4 MG/ML VIAL ONE (10:49)
[2019-10-07] MEDS ORDERED: ONDANSETRON INJ 2 MG/ML 2 ML VIAL ONE (10:49)
[2019-10-07] MEDS ORDERED: ROCURONIUM BROMIDE 10 MG/ML 5 ML VIAL ONE ×2 (10:49→11:46)
[2019-10-07] MEDS ORDERED: ePHEDrine sulfate 50 MG/ML SYR ONE (11:46)
[2019-10-07] MEDS ORDERED: PHENYLEPHRINE 100MCG/ML 5ML SYR ONE (11:46)
[2019-10-07] MEDS ORDERED: GLYCOPYRROLATE 0.2 MG/ML VIAL ONE ×2 (11:47→12:01)
[2019-10-07] MEDS ORDERED: NEOSTIGMINE METHYLSULFATE 5 MG/5 ML SYR ONE (11:47)
[2019-10-07] MEDS ORDERED: PROPOFOL IV EMULSION 10 MG/ML 20 ML VIAL IV ONE (11:47)
[2019-10-07] MEDS ORDERED: LIDOCAINE HCL 2% 2 ML VIAL/AMP(20MG/ML) INFIL ONE (11:47)
[2019-10-07] MEDS ORDERED: FLOSEAL HEMOSTATIC MATRIX 10ML TOP ONE (11:58)
--- NOTE | 2019-10-07 12:05 | Operative Report ---
Post Operative Report Pre & Post Diagnosis Operation Date: 10/07/19 09:55 Pre-Op Diagnosis: Fracture of lumbar spine without lesion of spinal cord with delayed healing Post-Op Diagnosis: Fracture of lumbar spine without lesion of spinal cord with delayed healing I identified the patient and participated in the time-out.: Yes Procedure Operation Date: 10/07/19 09:55 Actual Procedures #1 removal of instrumentation L2-L3. #2 posterior spinal fusion L3-S1. #3 placed a posterior segmental instrumentation including a cross-link L3-S1. #4 placement locally harvested morselized autograft in the posterior gutters. #5 placement infuse collagen sponge, master graft in the posterior lateral gutters L3-S1. Surgeon Surjit Tello, Certified Composites Technician Prisca Bryson Estimated Blood Loss 75 Findings Consistent with Post-Op Diagnosis Specimens None Indications This is a 69-year-old female well-known to me the presents my office with wor sening back pain. Imaging demonstrates evidence of a fracture across the L4-5 fusion mass consistent with delayed to nonhealing. Description of Procedure Patient was met with preop the case discussed all questions addressed by them and patient was taken back to the operative suite underwent an patient placed in a prone position the Greg table on top Giuseppe frame. All bony prominences well-padded eyes inspected to ensure no external pressure placed upon them. This point the lumbar spine is prepped and draped in normal sterile fashion. Sharp dissection with the assistance pericardial form down to and exposing the instrumentation L2 and L3 as well as the posterior fusion mass and remaining transverse processes of L3-L4-L5 and the sacral ala bilaterally. Then proceeded move the hardware at L3-4 and with assistance of fluoroscopy placed pedicle screws in L3-L4-L5 and S1 pedicles. Proper sized jose e was then contoured and locked into position bilaterally. This included a cross-link. The transverse processes and fusion mass from L3-S1 were then burred to subcortical bleeding bone. Infuse collagen sponge master graft local autograft was then placed in the posterior gutters. 15 round ANDRE drain inserted. The incision was then closed with 1 Vicryl the fascia 2-0 Vicryl subcutaneously and 4 Monocryl for final skin closure. Steri-Strip sterile dressings placed. Patient will continue PACU stable condition. Please note Prisca Bryson was present at the entire procedure involved the patient positioning complex portions of the surg magdi and final skin closure. I attest to the content of the Intraoperative Record and any orders documented therein. Any exceptions are noted below.
--- NOTE | 2019-10-07 12:15 | Fluoroscopy Report ---
FL lumbar spine 2-3V HISTORY: 69 years-old Female L4-L5 FUSION chronic low back pain COMPARISON: Fluoroscopic images of the lumbar spine 08/27/2019 TECHNIQUE: 4 spot fluoroscopic images of the lumbar spine were obtained utilizing 7.4 seconds fluoros copy time FINDINGS: Laminectomy changes with posterior interbody jose e and screw fusion at what appears to be the L2-S1 lev els. Discectomy changes with posterior interbody jose e and screw fusion was previously noted at L2-L3. There is satisfactory alignment and the hardware appears intact. Multilevel disc space narrowing with spondylitic spurring and facet arthrosis. IMPRESSION: Fluoroscopic assistance as above. Please see operative report for further details. ACT 112: Negative or not required by law. The above report was generated using voice recognition software. It may contain grammatical, syntax o r spelling errors. Electronically signed by: Kevin Thompson M.D. 10/07/2019 12:13 PM
--- NOTE | 2019-10-07 13:11 | Anesthesiology Progress Note ---
Date of Service October 07, 2019 Anesthesia Post Procedure Vital Signs Vital Signs: Temp Pulse Pulse Resp BP Pulse Ox 10/07/19 13:10 36.8 C 81 12 113/67 96 10/07/19 13:00 81 16 111/76 96 10/07/19 12:50 83 17 110/71 97 10/07/19 12:41 37.0 C 85 18 121/79 98 10/07/19 08:58 36.8 C 76 16 95/70 L 98 Pain Intensity Right Hip: Pain Intensity: 10 Transfer of Care Handoff Completed per policy Notes Mental Status: alert / awake / arousable Patient Amnestic to Procedure: Yes Nausea / Vomiting: adequately controlled Pain: adequately controlled Airway Patency, RR, SpO2: stable & adequate BP & HR: stable & adequate Hydration State: stable & adequate Anesthetic Complications: no major complications apparent
[2019-10-07] MEDS ORDERED: ONDANSETRON 4 MG OD TAB PO PRN (13:48)
[2019-10-07] MEDS ORDERED: DO NOT ADMINISTER FLU VACCINE PRN (13:48)
[2019-10-07] MEDS ORDERED: DO NOT ADMINISTER PNEUMOCOCCAL VACCINE PRN (13:48)
[2019-10-07] MEDS ORDERED: HYDROmorphone INJ 0.5 MG/0.5 ML SYR IV PRN (13:48)
[2019-10-07] MEDS ORDERED: HYDROmorphone INJ 1 MG/ML SYRINGE IV PRN (13:48)
[2019-10-07] MEDS ORDERED: METOCLOPRAMIDE HCL INJ 5 MG/ML 2 ML VIAL IV PRN (13:48)
[2019-10-07] MEDS ORDERED: PROMETHAZINE HCL 12.5 MG in SODIUM CHLORIDE 0.9% 50 ML IV PRN (13:48)
[2019-10-07] MEDS ORDERED: ALUMINUM/MAGNESIUM SUSP 30 ML UDC PO PRN (13:48)
[2019-10-07] MEDS ORDERED: NALOXONE HCL 0.4 MG/1 ML VIAL/CARP IV PRN (13:48)
[2019-10-07] MEDS ORDERED: LORazepam 0.5 MG TAB PO PRN ×2 (13:48)
[2019-10-07] MEDS ORDERED: ACETAMINOPHEN 1,000 MG/100 ML VIAL IV PRN (13:48)
[2019-10-07] MEDS ORDERED: TRAMADOL HCL 50 MG TABLET PO PRN (13:48)
[2019-10-07] MEDS ORDERED: LORazepam 0.5 MG/1 ML VIAL IV PRN (13:48)
[2019-10-07] MEDS ORDERED: bisacodyL 10 MG SUPP PR PRN (13:48)
[2019-10-07] MEDS ORDERED: MAGNESIUM HYDROXIDE SUSP 30 ML UDC PO PRN (13:48)
[2019-10-07] MEDS ORDERED: SOD PHOSPHATE/SOD BIPHOSPHATE ENEMA 132 ML BTL PR PRN (13:48)
[2019-10-07] MEDS ORDERED: FAMOTIDINE 20 MG TAB PO PRN (13:48)
[2019-10-07] MEDS ORDERED: ONDANSETRON INJ 2 MG/ML 2 ML VIAL IV PRN (13:48)
[2019-10-07] MEDS ORDERED: PHARMACY GLYCEMIC MGMT CONSULT PRN (14:10)
[2019-10-07] MEDS: SODIUM CHLORIDE 0.9% 1000ML 1,000 ML IV SCH (14:12)
--- NOTE | 2019-10-07 14:28 | Pharmacy Report ---
Glycemic Control Consultation - Date of Service October 07, 2019 - Scope Scope: Glycemic Pharmacist consulted for glycemic control and to write orders per [facility] inpatient glycemic control protocol. - Objective Weight: 72.8 kg Accuchecks BSG (last 24hrs): 10/07/19 10/07/19 10/07/19 08:40 12:43 14:04 POC Glucose 123 H 144 H 151 H - Recent Pertinent Medications Outpatient Anti-diabetic Regimen: * metformin 500 mg bid * A1c = 5.9 % 08/2019 Risk Factors for Insulin Resistance: * Steroids: dex iv 8 mg x 1 * Recent Surgery: POD 0 * Diet: clears - Assessment & Plan Assessment & Plan: ASSESSMENT: * 69 year old POD 0 for lumbar fusion - pharmacy consulted to assist with glycem ic management postop * Type 2 diabetic managed only on metformin at home. Patient previously admitted 08/26 of this year - will utilize similar insulin regimen to prior admission. Appears also receiving similar steroids on prior admission, however BSGs at that time well controlled only with novolog insulin. May add small scale for basal insulin this evening due to concern for possible hyperglycemia with steroids. PLAN FOR INPATIENT GLYCEMIC CONTROL: * Holding outpatient oral diabetes medications * Basal insulin * Lantus HS - give only if BSG >200 - 10 units * Bolus insulin * NovoLog per scale ACHS or Q6hrs while NPO * Goal Range: Low 110 mg/dL - High 140 mg/dL * Correction Factor: 30 mg/dL/unit * Nutritional / Prandial insulin per carb ratio of 1 unit per 10 grams CHO consumed * Please note that the plan above was derived based on current level of insulin resistance and hospital stress. These recommendations are appropriate for i npatient admission only. Plan of care upon discharge will need to be reassessed to avoid potential outpatient hypo/hyperglycemia. Thank you.
[2019-10-07] MEDS ORDERED: CARBOHYDRATES FOR HYPOGLYCEMIA PO PRN (14:30)
[2019-10-07] MEDS ORDERED: GLUCAGON FOR INJ 1 MG VIAL IM PRN (14:30)
[2019-10-07] MEDS ORDERED: DEXTROSE 50% 50 ML SYRINGE IV PRN (14:30)
[2019-10-07] MEDS ORDERED: GLUCOSE 10 TABS/TUBE PO PRN (14:30)
[2019-10-07] MEDS ORDERED: GLUCOSE 40% GEL 15 GM TUBE PO PRN (14:30)
--- NOTE | 2019-10-07 14:47 | Anesthesiology Progress Note ---
Date of Service October 07, 2019 Anesthesia Post Procedure Vital Signs Vital Signs: Temp Pulse Pulse Resp BP Pulse Ox 10/07/19 14:36 36.6 C 71 18 88/43 L 99 10/07/19 14:09 36.6 C 71 18 93/56 L 99 10/07/19 13:35 36.6 C 80 16 110/73 98 10/07/19 13:25 79 13 106/66 97 10/07/19 13:10 36.8 C 81 12 113/67 96 10/07/19 13:00 81 16 111/76 96 10/07/19 12:50 83 17 110/71 97 10/07/19 12:41 37.0 C 85 18 121/79 98 10/07/19 08:58 36.8 C 76 16 95/70 L 98 Pain Intensity Right Hip: Pain Intensity: 10 Transfer of Care Handoff Completed per policy Notes Mental Status: alert / awake / arousable Patient Amnestic to Procedure: Yes Nausea / Vomiting: adequately controlled Pain: adequately controlled Airway Patency, RR, SpO2: stable & adequate BP & HR: stable & adequate Hydration State: stable & adequate Anesthetic Complications: no major complications apparent
[2019-10-07] MEDS ORDERED: SODIUM CHLORIDE 0.9% 1000ML 500 ML IV ONE ×2 (14:48→17:59)
--- NOTE | 2019-10-07 15:13 | Consultation ---
Date of Consultation October 07, 2019 Assessment & Plan (1) Spinal stenosis, lumbar region with neurogenic claudication: s/p decompression and fusion 10/06 Pain medication, dvt proph per primary Monitor for acute blood loss, cbc am Resume asa when ok with primary (2) Hypothyroidism: continue levothyroxine (3) Hypertension: Currently hypotensive - hold lisinopril for now, continue metoprolol Will give small bolus of 500 ml nss (4) Hyperlipidemia: Continue home statin (5) DMII (diabetes mellitus, type 2): [facility] ac & hs pharmacy glycemic management Supervising Physician Co-Signing Physician Notes Attending Attestation: Pt seen/examined, chart reviewed, consult care plan d/w PROJECT LANDSCAPE ARCHITECT Astrid Jayjay. I agree w/ the quiñones components of her consult documentation. 69yo female with recent history of back surgery on 08/27/19 - removal of ins trumentation with lumbar decompression/fusion - who presented today for repeat lumbar surgery due to delayed healing. Underwent removal of instrumentation from the prior surgery and repeat decompression/fusion. Post-op she had hypotension requiring 500cc NS bolus. Looking through records she had similar hypotension after her 08/27/19 back surgery. During my assessment she had persistent hypotension requiring a 2nd 500cc NS bolus. This improved her systolic BP to >100. Also during my assessment she denied any dyspnea or chest pain. PMH, PSH, allergies, meds, sochx, famhx - reviewed BPs low, other vitals stable gen - mild pallor otherwise NAD neck - no JVD heart - RRR, s1, s2 lungs - CTA b/l abd - soft NT; midline hernia - reducible; BS+; ND ext - no edema A/P: 1. s/p extensive lumbar surgery - removal of hardware, repeat decompression/fusion 2. post-operative hypotension -- s/p 1 L NS bolus Will check CBC, BMP, cortisol level to ensure no significant blood loss, stability of creatinine, etc 3. hypothyroidism 4. HTN - hold BP meds 5. T2DM - pharmacy to provide glycemic management Diego Landon MD History of Present Illness Ms. Palacio is s/p decompression and fusion today with Dr. Tello. She is having some hypotension that is asymptomatic but otherwise has no complaints. She is drowsy but able to converse easily. Her pain is well controlled. Attending Physician: Surjit Tello, DO Allergies Allergy/AdvReac Type Severity Reaction Status Date / Time morphine Allergy Intermediate HIVES Verified 10/07/19 08:40 adhesive Allergy Mild RASH Verified 10/07/19 08:40 chlorhexidine Allergy Mild Itching/Bur Verified 10/07/19 08:40 ophelia nitroglycerin AdvReac Intermediate SEVERE Verified 10/07/19 08:40 HEADACHE Home Medications Home Medications Medication Instructions Recorded Confirmed Type blood sugar diagnostic #50 ea 01/22/19 08/16/19 Rx blood-glucose meter #1 ea 01/22/19 08/16/19 History lancets 33 gauge #100 ea 01/22/19 08/16/19 Rx atorvastatin 10 mg PO DAILY 08/06/19 10/07/19 History calcium carbonate-vitamin D3 1 tab PO BID 08/06/19 10/04/19 History [Calcium 600 + D(3)] cholecalciferol (vitamin D3) 50 mcg PO QAM 08/06/19 10/04/19 History [Vitamin D3] ferrous sulfate [iron] 325 mg PO DAILY 08/06/19 10/04/19 History magnesium 800 mg PO DAILY 08/06/19 10/07/19 History metoprolol tartrate 12.5 mg PO BID 08/06/19 10/04/19 History omeprazole 20 mg PO QAM 08/06/19 10/04/19 History levothyroxine 25 mcg tablet 25 mcg PO QAM #90 tab 08/16/19 10/07/19 Rx lisinopril 10 mg tablet 10 mg PO HS #90 tab 08/16/19 10/07/19 Rx metformin 500 mg tablet 500 mg PO BID #180 tab 08/16/19 10/07/19 Rx paroxetine HCl 30 mg tablet 30 mg PO HS #90 tab 08/16/19 10/07/19 Rx tramadol 50 mg PO Q6H PRN #30 tab 08/30/19 10/07/19 Rx bupropion HCl 150 mg tablet,12 hr 150 mg PO BID #60 ea 09/23/19 10/04/19 Rx sustained-release lorazepam 0.5 mg tablet See Rx Instructions PO DAILY PRN 09/23/19 10/07/19 Rx #30 tab acetaminophen [Acetaminophen Extra 1,000 mg PO Q6H PRN 10/04/19 10/07/19 History Strength] aspirin 81 mg PO QAM 10/04/19 10/04/19 History loratadine 10 mg PO QAM 10/04/19 10/07/19 History Patient History Family History Mother Diabetes Anxiety Myocardial infarction Hypertension Father Diabetes Colorectal cancer Grandfather Alcohol abuse Daughter Family history of reaction to anesthesia difficulty waking Social History Preferred Language: Georgian Communication Ability: Effective Cardiac Technician Required: No Beliefs That Will Affect Care: None Current Living Situation: Spouse Other Information That Helps Us Care for You: No Feels Safe at Home: Yes Safety Concerns: Feels Safe At This Time Smoking Status: Never smoker Do You Dip or Chew Tobacco: No ; Second Hand Exposure: Yes (father smoked) ; Tobacco Cessation Education Requested by Patient: No Hx Alcohol Use: Yes Alcohol type: wine Hx Substance Use: No Review of Systems Constitutional: no fever, no chills, no sweats and no body aches Respiratory: no cough and no dyspnea Cardiovascular: no chest pain, no dyspnea and no lightheadedness Gastrointestinal: no abdominal pain, no nausea and no vomiting Genitourinary: no dysuria and no urinary frequency Musculoskeletal: + back pain (mild); no joint pain Integumentary: no rash Physical Exam Physical Exam: General: no distress Eyes: normal inspection, PERLL Respiratory: chest non tender, clear to auscultation, normal breath sounds, no respiratory distress, no accessory muscle use Cardiac: regular rate and rhythm, no rub or gallop, no murmur, no edema, no jvd GI/: active bowel sounds, no abd pain or tenderness, soft, non distended Extremities: normal range of motion, normal strength, non tender Neuro: alert, moves all extremities Psych:oriented x 3, normal mood and affect Skin: normal color, dry Results & Data ([facility]) Vital Signs (Past 12 Hours) Vital Signs Temp Pulse Pulse Resp BP Pulse Ox 10/07/19 14:36 36.6 C 71 18 88/43 L 99 10/07/19 14:09 36.6 C 71 18 93/56 L 99 10/07/19 13:35 36.6 C 80 16 110/73 98 10/07/19 13:25 79 13 106/66 97 10/07/19 13:10 36.8 C 81 12 113/67 96 10/07/19 13:00 81 16 111/76 96 10/07/19 12:50 83 17 110/71 97 10/07/19 12:41 37.0 C 85 18 121/79 98 10/07/19 08:58 36.8 C 76 16 95/70 L 98 PG Care Time/CCT Total # of Minutes Spent Total Time Spent with Patient: Total time spent is greater than 50% in coordination of care (as documented) at patient's floor/unit and/or counseling patient: Coding Level of Care Code 12617 Inpt Consult Level 4 Diagnoses Spinal stenosis, lumbar region with neurogenic claudication M48.062 Hypothyroidism E03.9 Hypothyroidism type: unspecified Hypertension I10 Hypertension type: essential hypertension Hyperlipidemia E78.5 Hyperlipidemia type: unspecified DMII (diabetes mellitus, type 2) E11.9 (1) Hyperlipidemia Hyperlipidemia type: unspecified Qualified Code(s): E78.5 - Hyperlipidemia, unspecified (2) Hypothyroidism Hypothyroidism type: unspecified Qualified Code(s): E03.9 - Hypothyroidism, unspecified (3) Hypertension Hypertension type: essential hypertension Qualified Code(s): I10 - Essential (primary) hypertension
[2019-10-07] MEDS: INSULIN ASPART 100 UNITS/ML 3 ML PEN SC SCH ×2 (18:20→20:58)
[2019-10-07] MEDS: CEFAZOLIN 2000MG 2,000 MG/15 ML SYR IV SCH (18:47)
[2019-10-07 19:18] LABS: Basophils # (auto) 0.01 K/uL (0-0.2); Basophils % (auto) 0.2 %; Eosinophils # (auto) 0.01 K/uL (0-0.5); Eosinophils % (auto) 0.2 %; Hematocrit (blood only) 32.7 % (37-47); Hemoglobin 10.4 g/dL (12.0-16.0); Immature Granulocytes # (auto) 0.01 K/uL (0.00-0.02); Immature Granulocytes % (auto) 0.2 %; Lymphocytes # (auto) 0.42 K/uL (1.2-3.4); Lymphocytes % (auto) 6.6 %; Mean Corpuscular Hemoglobin 27.3 pg (25-34); Mean Corpuscular Hgb Conc 31.8 g/dL (32-36); Mean Corpuscular Volume 85.8 fL (80-100); Mean Platelet Volume 8.6 fL (7.4-10.4); Monocytes # (auto) 0.09 K/uL (0.11-0.59); Monocytes % (auto) 1.4 %; Neutrophils # (auto) 5.87 K/uL (1.4-6.5); Neutrophils % (auto) 91.4 %; Platelet Count 271 K/uL (130-400); RDW Coefficient of Variation 14.2 % (11.5-14.5); RDW Standard Deviation 44.6 fL (36.4-46.3); Red Blood Count 3.81 M/uL (4.2-5.4); White Blood Count 6.41 K/uL (4.8-10.8)
[2019-10-07 19:37] LABS: Calcium 8.3 mg/dl (8.5-10.1); Creatinine Clr Calc Pharmacy 33.7 ml/min; Est GFR (African American) 41.5; Est GFR (Non-African American) 35.8; Potassium 4.2 mmol/L (3.5-5.1)
[2019-10-07] MEDS: CALCIUM 600MG + VIT D 400 IU TAB PO SCH (20:52)
[2019-10-07] MEDS: DOCUSATE SODIUM/SENNA 50/8.6MG TAB PO SCH (20:53)
[2019-10-07] MEDS: PARoxetine HCL 20 MG TAB PO SCH (20:53)
[2019-10-07] MEDS: BuPROPion SR 150 MG TABCR PO SCH (20:55)
[2019-10-07] MEDS ORDERED: lisinopriL 10 MG TAB PO SCH (21:00)
[2019-10-07] MEDS ORDERED: LANTUS PER UNIT CHARGE SQ SCH (21:00)
[2019-10-07] MEDS: METOPROLOL TARTRATE 25 MG TAB PO SCH (21:03)
[2019-10-08] MEDS: CEFAZOLIN 2000MG 2,000 MG/15 ML SYR IV SCH (02:43)
[2019-10-08] MEDS: SODIUM CHLORIDE 0.9% 1000ML 1,000 ML IV SCH (02:43)
[2019-10-08 05:25] LABS: Basophils # (auto) 0.01 K/uL (0-0.2); Basophils % (auto) 0.1 %; Eosinophils # (auto) 0.01 K/uL (0-0.5); Eosinophils % (auto) 0.1 %; Hematocrit (blood only) 30.2 % (37-47); Hemoglobin 9.7 g/dL (12.0-16.0); Immature Granulocytes # (auto) 0.02 K/uL (0.00-0.02); Immature Granulocytes % (auto) 0.3 %; Lymphocytes # (auto) 0.73 K/uL (1.2-3.4); Lymphocytes % (auto) 9.7 %; Mean Corpuscular Hemoglobin 27.2 pg (25-34); Mean Corpuscular Hgb Conc 32.1 g/dL (32-36); Mean Corpuscular Volume 84.8 fL (80-100); Mean Platelet Volume 8.9 fL (7.4-10.4); Monocytes # (auto) 0.64 K/uL (0.11-0.59); Monocytes % (auto) 8.5 %; Neutrophils % (auto) 81.3 %; Platelet Count 269 K/uL (130-400); RDW Coefficient of Variation 14.1 % (11.5-14.5); RDW Standard Deviation 43.5 fL (36.4-46.3); Red Blood Count 3.56 M/uL (4.2-5.4); White Blood Count 7.51 K/uL (4.8-10.8)
[2019-10-08] MEDS: POLYETHYLENE (MIRALAX) 17 GM PACK PO SCH ×4 (05:41→23:21)
[2019-10-08] MEDS: LEVOTHYROXINE SODIUM 25 MCG TABLET PO SCH (05:41)
[2019-10-08 05:54] LABS: BUN Creatinine Ratio 13.5 (10-20); Calcium 8.7 mg/dl (8.5-10.1); Est GFR (African American) 65.3; Est GFR (Non-African American) 56.4
[2019-10-08] MEDS: METOPROLOL TARTRATE 25 MG TAB PO SCH ×2 (08:43→20:17)
[2019-10-08] MEDS: CHOLECALCIFEROL 1,000 UNITS 25 MCG TAB PO SCH (08:46)
[2019-10-08] MEDS: PANTOprazole 40 MG TAB PO SCH (08:46)
[2019-10-08] MEDS: MAGNESIUM OXIDE 400 MG TAB PO SCH (08:46)
[2019-10-08] MEDS: FERROUS SULFATE 325 MG TAB PO SCH ×2 (08:47→08:49)
[2019-10-08] MEDS: CALCIUM 600MG + VIT D 400 IU TAB PO SCH ×2 (08:47→20:16)
[2019-10-08] MEDS: INSULIN ASPART 100 UNITS/ML 3 ML PEN SC SCH ×4 (08:49→22:33)
[2019-10-08] MEDS: ACETAMINOPHEN 500 MG TAB PO PRN (08:51)
[2019-10-08] MEDS: ATORVASTATIN 10 MG TAB PO SCH (09:26)
[2019-10-08] MEDS: LORATADINE 10 MG TAB PO SCH (09:27)
[2019-10-08] MEDS: BuPROPion SR 150 MG TABCR PO SCH ×2 (09:27→17:40)
[2019-10-08] MEDS: ASPIRIN 81 MG ECTAB PO SCH (09:27)
[2019-10-08] MEDS: OXYCODONE HCL IR 5 MG TAB (IMMEDIATE RELEASE) PO PRN ×2 (09:29→20:14)
--- NOTE | 2019-10-08 09:42 | Pharmacy Report ---
Pharmacy Glycemic Short Note 2 - Date of Service October 08, 2019 - Glycemic Short BSG Results (Last 24 hours): 10/07/19 10/07/19 10/07/19 12:43 14:04 17:01 Glucose POC Glucose 144 H 151 H 150 H 10/07/19 10/07/19 10/08/19 19:07 20:25 04:58 Glucose 182 H 135 H POC Glucose 177 H 10/08/19 08:02 Glucose POC Glucose 134 H ASSESSMENT: 10/07 * Patient requiring only 4 units of correctional insulin yesterday - no basal despite receiving steroids * Fasting BSG 135 mg/dL - continue to hold basal * Continue same CF/CR for now 10/06 * 69 year old POD 0 for lumbar fusion - pharmacy consulted to assist with glycemic management postop * Type 2 diabetic managed only on metformin at home. Patient previously admitted 08/26 of this year - will utilize similar insulin regimen to prior admission. Appears also receiving similar steroids on prior admission, however BSGs at that time well controlled only with novolog insulin. May add small scale for basal insulin this evening due to concern for possible hyperglycemia with steroids. PLAN FOR INPATIENT GLYCEMIC CONTROL: * Holding outpatient oral diabetes medications - will consider restarting home metformin tomorrow if renal function and po intake stable * Basal insulin - not indicated * Bolus insulin * NovoLog per scale ACHS or Q6hrs while NPO * Goal Range: Low 110 mg/dL - High 140 mg/dL * Correction Factor: 45 mg/dL/unit * Nutritional / Prandial insulin per carb ratio of 1 unit per 15 grams CHO consumed * Please note that the plan above was derived based on current level of insulin resistance and hospital stress. These recommendations are appropriate for inpatient admission only. Plan of care upon discharge will need to be reassessed to avoid potential outpatient hypo/hyperglycemia. Thank you. PLAN FOR DISCHARGE: * A1c 5.9% - A reasonable A1c goal for adults is A1c <7% * Reasonable to continue home metformin as long as patient does not report low BSGs at home
--- NOTE | 2019-10-08 11:11 | Orthopedic Progress Note ---
Date of Service October 08, 2019 Assessment & Plan (1) Lumbar stenosis with neurogenic claudication: At this time will initiate physical therapy monitor her ANDRE output she is planning for rehab placement upon discharge. Present on Admission?: Yes Admission and Anticipated Discharge Date Admission Date: October 07, 2019 Subjective Patient's back pain is markedly improved. Physical Exam Physical Exam: Patient is appears comfortable has good strength testing. Results & Data ([facility]) Vital Signs (Past 12 Hours) Vital Signs Temp Pulse Resp BP Pulse Ox 10/08/19 07:25 36.6 C 95 H 16 102/67 99 10/08/19 02:41 36.3 C L 82 17 151/82 H 99
--- NOTE | 2019-10-08 14:17 | Hospitalist Progress Note ---
Date of Service October 08, 2019 Assessment & Plan (1) Spinal stenosis, lumbar region with neurogenic claudication: s/p decompression and fusion 10/06 Pain medication, dvt proph per primary Monitor for acute blood loss, cbc am Resume asa when ok with primary (2) Hypothyroidism: continue levothyroxine (3) Hypotension: Given 1L bolus after returning from surgery which helped Cortisol is low at 2 - will perform a cortisol stimulating test with lab draw in the morning (4) Hypertension: Currently hypotensive - hold lisinopril for now, continue metoprolol (5) Hyperlipidemia: Continue home statin (6) DMII (diabetes mellitus, type 2): [facility] [place] ac & hs pharmacy glycemic management Admission and Anticipated Discharge Date Admission Date: October 07, 2019 Subjective Ms. Palacio feels mild discomfort at her surgical site but reports her pain is much improved. Her pressures have been a bit better but running low normal. ROS Constitutional: no chills, aches, sweats or fever Respiratory: no sob,cough, sputum, or wheezing Cardiac: no chest pain, palpitations, edema, orthopnea or lightheadedness GI: no abdominal pain, nausea, vomiting, diarrhea or constipation : no dysuria or hesitancy Extremities: no joint pain or weakness Skin: no rash All other systems reviewed and negative Physical Exam Physical Exam: General: no distress Eyes: normal inspection, PERLL Respiratory: chest non tender, clear to auscultation, normal breath sounds, no respiratory distress, no accessory muscle use Cardiac: regular rate and rhythm, no rub or gallop, no murmur, no edema, no jvd GI/: active bowel sounds, no abd pain or tenderness, soft, non distended Extremities: normal range of motion, normal strength, non tender Neuro/Psych: alert and oriented x 3, normal mood and affect Skin: normal color, dry Results & Data Results & Data ([facility]) Vital Signs (Past 12 Hours) Vital Signs Temp Pulse Resp BP Pulse Ox 10/08/19 11:46 36.5 C 75 16 102/64 100 10/08/19 07:25 36.6 C 95 H 16 102/67 99 10/08/19 02:41 36.3 C L 82 17 151/82 H 99 PG Care Time/CCT Total # of Minutes Spent Total Time Spent with Patient: Total time spent is greater than 50% in coordination of care (as documented) at patient's floor/unit and/or counseling patient: Coding Level of Care Code 18906 Subseq Hosp Care Lvl 2 Diagnoses Spinal stenosis, lumbar region with neurogenic claudication M48.062 Hypothyroidism E03.9 Hypothyroidism type: unspecified Hypotension I95.9 Hypertension I10 Hypertension type: essential hypertension Hyperlipidemia E78.5 Hyperlipidemia type: unspecified DMII (diabetes mellitus, type 2) E11.9 (1) Hypothyroidism Hypothyroidism type: unspecified Qualified Code(s): E03.9 - Hypothyroidism, unspecified (2) Hypertension Hypertension type: essential hypertension Qualified Code(s): I10 - Essential (primary) hypertension (3) Hyperlipidemia Hyperlipidemia type: unspecified Qualified Code(s): E78.5 - Hyperlipidemia, unspecified
[2019-10-08] MEDS ORDERED: Nursing to Pharmacy Communication ONE (18:17)
[2019-10-08] MEDS: PARoxetine HCL 20 MG TAB PO SCH (20:19)
[2019-10-08] MEDS: DOCUSATE SODIUM/SENNA 50/8.6MG TAB PO SCH (20:20)
[2019-10-09] MEDS: INSULIN ASPART 100 UNITS/ML 3 ML PEN SC SCH ×5 (00:49→22:22)
[2019-10-09] MEDS: OXYCODONE HCL IR 5 MG TAB (IMMEDIATE RELEASE) PO PRN ×3 (03:32→20:28)
[2019-10-09] MEDS: ACETAMINOPHEN 500 MG TAB PO PRN (03:33)
[2019-10-09] MEDS: POLYETHYLENE (MIRALAX) 17 GM PACK PO SCH ×4 (05:44→23:40)
[2019-10-09] MEDS: LEVOTHYROXINE SODIUM 25 MCG TABLET PO SCH (06:29)
[2019-10-09] MEDS ORDERED: COSYNTROPIN 250 MCG in SYRINGE 4 ML IV SCH (08:00)
--- NOTE | 2019-10-09 08:48 | Orthopedic Progress Note ---
Date of Service October 09, 2019 Assessment & Plan (1) Lumbar stenosis with neurogenic claudication: This time continue physical therapy and monitor her ANDRE output. We anticipate discharge to rehab Friday. Present on Admission?: Yes Admission and Anticipated Discharge Date Admission Date: October 07, 2019 Subjective Patient's back pain is controlled denies any leg pain. Physical Exam Physical Exam: Exam she is good strength testing appears comfortable. Results & Data ([facility]) Vital Signs (Past 12 Hours) Vital Signs Temp Pulse Pulse Resp BP Pulse Ox 10/09/19 07:05 36.5 C 72 16 105/66 96 10/08/19 23:56 36.7 C 82 18 107/71 97
[2019-10-09] MEDS: CALCIUM 600MG + VIT D 400 IU TAB PO SCH ×2 (10:05→20:30)
[2019-10-09] MEDS: FERROUS SULFATE 325 MG TAB PO SCH ×2 (10:05→10:12)
[2019-10-09] MEDS: ATORVASTATIN 10 MG TAB PO SCH (10:05)
[2019-10-09] MEDS: METOPROLOL TARTRATE 25 MG TAB PO SCH ×2 (10:05→20:30)
[2019-10-09] MEDS: MAGNESIUM OXIDE 400 MG TAB PO SCH (10:06)
[2019-10-09] MEDS: LORATADINE 10 MG TAB PO SCH (10:06)
[2019-10-09] MEDS: ASPIRIN 81 MG ECTAB PO SCH (10:06)
[2019-10-09] MEDS: PANTOprazole 40 MG TAB PO SCH (10:06)
[2019-10-09] MEDS: CHOLECALCIFEROL 1,000 UNITS 25 MCG TAB PO SCH ×2 (10:07→14:49)
[2019-10-09] MEDS: BuPROPion SR 150 MG TABCR PO SCH ×2 (10:07→14:49)
--- NOTE | 2019-10-09 15:50 | Hospitalist Progress Note ---
Date of Service October 09, 2019 Assessment & Plan (1) Spinal stenosis, lumbar region with neurogenic claudication: s/p decompression and fusion 10/06 Pain medication, dvt proph per primary doing well, will sign off from medicine standpoint (2) Hypothyroidism: continue levothyroxine (3) Hypotension: Given 1L bolus after returning from surgery which helped normal cortisol stress test BP stable today (4) Hypertension: hold lisinopril for now, continue metoprolol continue to hold lisinopril on discharge, can resume outpatient if BP elevated (5) Hyperlipidemia: Continue home statin (6) DMII (diabetes mellitus, type 2): [facility] [place] pharmacy glycemic management Admission and Anticipated Discharge Date Admission Date: October 07, 2019 Subjective patient doing well, far less pain cortisol stress test was normal eating well, breathing stable, no chest pain or pressure participating in therapy Review of Systems Review of Systems: All systems reviewed & are unremarkable except as noted in HPI & below Musculoskeletal: + back pain (5 out of 10) Physical Exam Constitutional: WD/WN, vitals as above Eyes: PERRL, conjunctivae normal, anicteric sclerae ENMT: external ear and nose normal, oropharynx normal Neck: trachea midline, no thyromegaly Respiratory: normal respiratory effort, lungs clear to auscultation Cardiovascular: RRR, no murmur, no edema Gastrointestinal (Abdomen): normal bowel sounds, soft, nontender, no hepatosplenomegaly Musculoskeletal: Head/Neck/Chest: normocephalic and head atraumatic Spine: + limited thoraco-lumbar ROM and + paraspinal tenderness Extremities: extremities normal to inspection; no cyanosis and no clubbing Skin: no rashes, warm and dry Neurologic: patellar DTR's 2+ bilat, sensation intact and PERRL, EOMI, accommodation nl, no face palsy, no dysarthria Psychiatric: A+Ox3, euthymic affect Lymphatic: no cervical or axillary lymphadenopathy Results & Data Results & Data ([facility]) Vital Signs (Past 12 Hours) Vital Signs Temp Pulse Pulse Resp BP Pulse Ox 10/09/19 15:07 36.5 C 70 18 94/59 L 99 10/09/19 07:05 36.5 C 72 16 105/66 96 Laboratory Results Laboratory Results - last 24 hr 05/01/20 05/01/20 05/02/20 16:55 20:51 00:07 POC Glucose 103 H 113 H 119 H Cortisol Response 10/09/19 10/09/19 10/09/19 06:06 07:16 12:17 POC Glucose 108 H 133 H Cortisol Response Medications Administered Current Inpatient Medications Acetaminophen (Tylenol) 1,000 mg PO Q8H PRN PRN Reason: MILD Pain Scale 1,2,3 & Pre PT Stop: 11/06/19 13:47 Last Admin: 10/09/19 03:33 Dose: 1,000 mg Documented by: Al Hydrox/Mg Hydrox/Simethicone (Maalox) 30 ml PO Q6H PRN PRN Reason: Dyspepsia Stop: 11/06/19 13:47 Aspirin (Ecotrin Ectab) [facility] [place] Stop: 11/07/19 08:59 Last Admin: 10/09/19 10:06 Dose: 81 mg Documented by: Atorvastatin Calcium (Lipitor) 10 mg PO DAILY [facility] Stop: 11/07/19 08:59 Last Admin: 10/09/19 10:05 Dose: 10 mg Documented by: Bisacodyl (Dulcolax) 10 mg OR DAILY PRN PRN Reason: Constipation Stop: 11/06/19 13:47 Bupropion HCl (Wellbutrin-Sr) 150 mg PO BID@0900,1500 [facility] Stop: 11/06/19 20:59 Last Admin: 10/09/19 14:49 Dose: 150 mg Documented by: Dextrose (Dextrose 50%) 25 - 50 ml IV UD PRN; Protocol PRN Reason: Hypoglycemia Protocol Stop: 11/06/19 14:29 Diphenhydramine HCl (Benadryl Capsule) 25 mg PO Q6H PRN PRN Reason: Allergic Rhinitis/Insomnia Stop: 11/06/19 13:47 Famotidine (Pepcid) 20 mg PO Q12H PRN PRN Reason: Dyspepsia Stop: 11/06/19 13:47 Ferrous Sulfate (Feosol) 325 mg PO DAILY [facility] Stop: 11/07/19 08:59 Last Admin: 10/09/19 10:12 Dose: Not Given Documented by: Glucagon (Glucagen) 1 mg IM UD PRN; Protocol PRN Reason: Hypoglycemia Protocol Stop: 11/06/19 14:29 Glucose (Glucose 40%) 15 - 30 gm PO UD PRN; Protocol PRN Reason: Hypoglycemia Protocol Stop: 11/06/19 14:29 Glucose (Dex4 Glucose) 4 - 8 tabs PO UD PRN; Protocol PRN Reason: Hypoglycemia Protocol Stop: 11/06/19 14:29 Hydromorphone HCl (Dilaudid) 0.5 mg IV Q3H PRN PRN Reason: MOD pain (scale 4-6) & Pre PT Stop: 10/21/19 13:47 Hydromorphone HCl (Dilaudid) 1 mg IV Q3H PRN PRN Reason: severe pain (scale 7-10) Stop: 10/21/19 13:47 Hydroxyzine HCl (Vistaril) 25 mg PO Q8H PRN PRN Reason: Anxiety Stop: 11/06/19 13:47 Lorazepam (Ativan) 0.5 mg in 1 mls @ 0.5 mls/min IV Q8H PRN PRN Reason: Sedation/Anxiety Stop: 11/06/19 13:47 Promethazine HCl 12.5 mg/ (Sodium Chloride) 50.5 mls @ 204 mls/hr IV Q6H PRN PRN Reason: Nausea &/or Vomiting Stop: 11/06/19 13:47 Cosyntropin 250 mcg/ Syringe 5 mls @ 2.5 mls/min IV TODAY@0800 [facility]; Protocol Stop: 10/09/19 16:00 Last Admin: 10/09/19 07:21 Dose: 2.5 mls/min Documented by: Influenza Virus Vaccine Quadrival (Flu Vaccine, Do Not Administer) 1 ea N/A PRN PRN PRN Reason: Notification Stop: 11/06/19 13:47 Insulin Aspart (Novolog Flexpen) 0 units SC [facility]; Protocol Stop: 11/08/19 00:29 Levothyroxine [facility]) [facility] Stop: 11/07/19 06:29 Last Admin: 10/09/19 06:29 Dose: 25 mcg Documented by: Lisinopril (Zestril) 10 mg PO [facility] Stop: 11/06/19 20:59 Loratadine (Claritin) 10 [facility] [place] Stop: 11/07/19 08:59 Last Admin: 10/09/19 10:06 Dose: 10 mg Documented by: Lorazepam (Ativan) 0.5 mg PO Q8H PRN PRN Reason: Sedation/Anxiety Stop: 11/06/19 13:47 Magnesium Hydroxide (Milk Of Magnesia) 30 ml PO DAILY PRN PRN Reason: Constipation Stop: 11/06/19 13:47 Magnesium Oxide (Mag-Ox) 800 mg PO DAILY [facility] Stop: 11/07/19 08:59 Last Admin: 10/09/19 10:06 Dose: 800 mg Documented by: Metoclopramide HCl (Reglan) 10 mg IV Q6H PRN PRN Reason: Nausea &/or Vomiting Stop: 11/06/19 13:47 Metoprolol Tartrate (Lopressor) 12.5 mg PO BID [facility] Stop: 11/06/19 20:59 Last Admin: 10/09/19 10:05 Dose: 12.5 mg Documented by: Miscellaneous (Carbohydrates For Hypoglycemia) 15 - 30 gm PO UD PRN PRN Reason: Hypoglycemia Treatment Stop: 11/06/19 14:29 Miscellaneous Information (Consult Glycemic Management Pharmacy) 1 ea N/A UD PRN PRN Reason: Consult Stop: 11/06/19 14:09 Multivitamins/Minerals (Caltrate Plus) 1 tab PO BID [facility] Stop: 11/06/19 20:59 Last Admin: 10/09/19 10:05 Dose: 1 tab Documented by: Naloxone HCl (Narcan) 0.1 mg IV Q5M PRN; Protocol PRN Reason: Oversedation/Resp Depression Stop: 11/06/19 13:47 Ondansetron HCl (Zofran) 4 mg IV Q6H PRN PRN Reason: Nausea &/or Vomiting Stop: 11/06/19 13:47 Ondansetron HCl (Zofran Odt) 4 mg PO Q6H PRN PRN Reason: Nausea Stop: 11/06/19 13:47 Oxycodone HCl (Roxicodone Immediate Rel) 5 - 10 mg PO Q4H PRN PRN Reason: Moderate-Severe Pain & Pre PT Stop: 10/21/19 13:47 Last Admin: 10/09/19 14:00 Dose: 10 mg Documented by: Pantoprazole Sodium (Protonix) 40 mg PO QAM [facility] Stop: 11/07/19 08:59 Last Admin: 10/09/19 10:06 Dose: 40 mg Documented by: Paroxetine HCl (Paxil) 30 mg PO HS TRACE Stop: 11/06/19 20:59 Last Admin: 10/08/19 20:19 Dose: 30 mg Documented by: Pneumococcal Polyvalent Vaccine (Pneumococcal Vacc, Do Not Administer) 1 ea N/A PRN PRN PRN Reason: Notification Stop: 11/06/19 13:47 Polyethylene Glycol (Miralax Powder Packet) 17 gm PO Q6 TRACE Stop: 11/07/19 05:59 Last Admin: 10/09/19 12:14 Dose: 17 gm Documented by: Senna/Docusate Sodium (Senokot S) 2 tab PO HS TRACE Stop: 11/06/19 20:59 Last Admin: 10/08/19 20:20 Dose: 2 tab Documented by: Sodium Biphosphate/Sodium Phosphate (Fleet Enema) 132 ml OR ONE PRN PRN Reason: Constipation Stop: 11/06/19 13:47 Tramadol HCl (Ultram) 50 - 100 mg PO Q4H PRN PRN Reason: Moderate-Severe Pain & Pre PT Stop: 11/06/19 13:47 Last Admin: 10/08/19 23:22 Dose: 100 mg Documented by: Vitamin D (Vitamin D3) 2,000 units PO QAM [facility] Stop: 11/07/19 08:59 Last Admin: 10/09/19 14:49 Dose: 2,000 units Documented by: PG Care Time/CCT Total # of Minutes Spent Total Time Spent with Patient: Total time spent is greater than 50% in coordination of care (as documented) at patient's floor/unit and/or counseling patient: Coding Level of Care Code 74269 Subseq Hosp Care Lvl 2 Diagnoses Spinal stenosis, lumbar region with neurogenic claudication M48.062 Hypothyroidism E03.9 Hypothyroidism type: unspecified Hypotension I95.9 Hypertension I10 Hypertension type: essential hypertension Hyperlipidemia E78.5 Hyperlipidemia type: unspecified DMII (diabetes mellitus, type 2) E11.9 (1) Hypothyroidism Hypothyroidism type: unspecified Qualified Code(s): E03.9 - Hypothyroidism, unspecified (2) Hypertension Hypertension type: essential hypertension Qualified Code(s): I10 - Essential (primary) hypertension (3) Hyperlipidemia Hyperlipidemia type: unspecified Qualified Code(s): E78.5 - Hyperlipidemia, unspecified
[2019-10-09] MEDS: DOCUSATE SODIUM/SENNA 50/8.6MG TAB PO SCH (20:29)
[2019-10-09] MEDS: PARoxetine HCL 20 MG TAB PO SCH (20:30)
[2019-10-10] MEDS: POLYETHYLENE (MIRALAX) 17 GM PACK PO SCH ×2 (06:14→13:08)
[2019-10-10] MEDS: LEVOTHYROXINE SODIUM 25 MCG TABLET PO SCH (06:15)
--- NOTE | 2019-10-10 08:02 | Orthopedic Progress Note ---
Date of Service October 10, 2019 Assessment & Plan (1) Lumbar stenosis with neurogenic claudication: This time we will continue physical therapy today monitor her ANDRE output anticipate discharge to rehab tomorrow. Present on Admission?: Yes Admission and Anticipated Discharge Date Admission Date: October 07, 2019 Subjective Back pain markedly improved. No leg symptoms. Physical Exam Physical Exam: Patient is comfortable neurologically intact. Results & Data ([facility]) Vital Signs (Past 12 Hours) Vital Signs Temp Pulse Pulse Resp BP Pulse Ox 10/10/19 07:20 36.6 C 72 16 102/67 100 10/09/19 23:12 36.5 C 71 18 113/76 97 10/09/19 20:28 76 138/74
[2019-10-10] MEDS ORDERED: CEFAZOLIN 1000MG 1,000 MG/7.5 ML SYR IV ONE (08:15)
--- NOTE | 2019-10-10 08:25 | Pharmacy Report ---
Pharmacy Glycemic Short Note 2 - Date of Service October 10, 2019 - Glycemic Short BSG Results (Last 24 hours): 10/09/19 10/09/19 10/09/19 12:17 17:04 20:47 POC Glucose 133 H 121 H 107 H 10/10/19 08:05 POC Glucose 100 H ASSESSMENT: 10/09 * Patient requiring only 2 units of correctional insulin yesterday - no basal required, blood sugars ranging 100-133mg/dl * Fasting BSG 100 mg/dL - continue to hold basal * Continue same CF/CR 10/07 * Patient requiring only 4 units of correctional insulin yesterday - no basal despite receiving steroids * Fasting BSG 135 mg/dL - continue to hold basal * Continue same CF/CR for now 10/06 * 69 year old POD 0 for lumbar fusion - pharmacy consulted to assist with glycemic management postop * Type 2 diabetic managed only on metformin at home. Patient previously admitted 08/26 of this year - will utilize similar insulin regimen to prior admission. Appears also receiving similar steroids on prior admission, however BSGs at that time well controlled only with novolog insulin. May add small scale for basal insulin this evening due to concern for possible hyperglycemia with steroids. PLAN FOR INPATIENT GLYCEMIC CONTROL: * Holding outpatient oral diabetes medications * Basal insulin - not indicated * Bolus insulin * NovoLog per scale ACHS or Q6hrs while NPO * Goal Range: Low 110 mg/dL - High 140 mg/dL * Correction Factor: 45 mg/dL/unit * Nutritional / Prandial insulin per carb ratio of 1 unit per 15 grams CHO consumed * Please note that the plan above was derived based on current level of insulin resistance and hospital stress. These recommendations are appropriate for inpatient admission only. Plan of care upon discharge will need to be reassessed to avoid potential outpatient hypo/hyperglycemia. Thank you. PLAN FOR DISCHARGE: * A1c 5.9% - A reasonable A1c goal for adults is A1c <7% * Reasonable to continue home metformin as long as patient does not report low BSGs at home
[2019-10-10] MEDS: INSULIN ASPART 100 UNITS/ML 3 ML PEN SC SCH ×4 (08:31→23:18)
[2019-10-10] MEDS: CALCIUM 600MG + VIT D 400 IU TAB PO SCH ×2 (08:32→21:10)
[2019-10-10] MEDS: METOPROLOL TARTRATE 25 MG TAB PO SCH ×2 (08:33→21:10)
[2019-10-10] MEDS: LORATADINE 10 MG TAB PO SCH (08:33)
[2019-10-10] MEDS: ASPIRIN 81 MG ECTAB PO SCH (08:35)
[2019-10-10] MEDS: FERROUS SULFATE 325 MG TAB PO SCH ×2 (08:35→08:42)
[2019-10-10] MEDS: MAGNESIUM OXIDE 400 MG TAB PO SCH (08:35)
[2019-10-10] MEDS: BuPROPion SR 150 MG TABCR PO SCH ×2 (08:36→16:43)
[2019-10-10] MEDS: PANTOprazole 40 MG TAB PO SCH (08:36)
[2019-10-10] MEDS: CHOLECALCIFEROL 1,000 UNITS 25 MCG TAB PO SCH ×2 (08:36→08:38)
[2019-10-10] MEDS: ATORVASTATIN 10 MG TAB PO SCH (08:37)
[2019-10-10] MEDS: OXYCODONE HCL IR 5 MG TAB (IMMEDIATE RELEASE) PO PRN ×2 (12:23→21:02)
[2019-10-10] MEDS: DOCUSATE SODIUM/SENNA 50/8.6MG TAB PO SCH (21:08)
[2019-10-10] MEDS: PARoxetine HCL 20 MG TAB PO SCH (21:09)
[2019-10-11] MEDS: LEVOTHYROXINE SODIUM 25 MCG TABLET PO SCH (05:42)
--- NOTE | 2019-10-11 08:02 | Discharge Summary ---
Date of Service October 11, 2019 Admission HPI Per Admitting Provider This is a 69-year-old female that presents with worsening severe limiting back pain. She is status post lumbar decompression fusion L2-3. She did very nicely for approximately 2 to 3-week weeks postop and then had significant decline in status with marked inability to ambulate and transfer from bed to chair and chair to ambulation. Principal Diagnosis Fracture of lumbar fusion mass Discharge Data Allergies Allergy/AdvReac Type Severity Reaction Status Date / Time morphine Allergy Intermediate HIVES Verified 10/07/19 08:40 adhesive Allergy Mild RASH Verified 10/07/19 08:40 chlorhexidine Allergy Mild Itching/Bur Verified 10/07/19 08:40 ophelia nitroglycerin AdvReac Intermediate SEVERE Verified 10/07/19 08:40 HEADACHE Consultations 10/07/19 13:48 Consult Case Management - Discharge Planning Routine Consult Hospitalist Routine Procedures Performed Operation Date: 10/07/19 09:55 Actual Procedures p L4-S1 Fusion and Decompression, Bone Morphogenetic Protein(Not Applicable) - Surjit Tello DO s Hardware removal L3-L4(Not Applicable) - Surjit Tello DO Ordered Studies 10/07/19 09:55 FL fluoroscopy <1hr Routine FL lumbar spine 2-3V Routine Hospital Course (1) Lumbar stenosis with neurogenic claudication: Patient went Total Time Total Time Spent Total Time Spent (In Minutes): 20 minutes Discharge Plan Discharge Items Patient Disposition: Transfer Detention Fac Reason For Visit: Spondylisthesis, Lumbar Region Discharge Diagnosis: Lumbar spinal stenosis Activity: As commented below Non-emergency contact: Primary Care Provider Call non-emergency contact if: you have any medication questions Follow-up/Referrals: Stephenie Ortiz PA-C [Primary Care Provider] - Diet: Regular Addtl Attending Provider Instructions: ACTIVITY RECOMMENDATIONS: SELF CARE INSTRUCTIONS AFTER THORACIC/LUMBAR FUSIONS 1. You may walk to your tolerance. It is good exercise for your legs and back. Expect some back and intermittent leg aches and pains. 2. You may perform "counter-top" level activities (make a sandwich, jessica with a project, etc.). 3. No bending or lifting of more than 10 pounds or back twisting of any nature (roll like a log when turning in bed). 4. You may ride in a car for 20-30 minutes at a time. No driving until after your first visit with your doctor. 5. Frequent changes of position and restricting sitting to 30 minutes at a time will help limit the amount of back spasms and stiffness you may experience. 6. You may discontinue the use of ambulatory aids (cane, crutches, etc.) once your strength and confidence allow. 7. You may principal android developer the shower and let water strike your incision when you arrive home at least once daily. Do not take a tub bath, sit in a hot tub or go into a swimming pool until after your first recheck in the office. SPECIAL CARE INSTRUCTIONS: VERY IMPORTANT TO READ AND REVIEW A. Your surgical incision has been closed with a cosmetic suture under the skin that will dissolve in about 6 weeks. In 14 days, you can use a pair of clean scissors and cut the suture that is left outside of the skin at the ends of your incision. 1. The small skin tapes can be removed 7 days after surgery if they have not fallen off by that point. 2. You may keep the wound open to air as much as possible to promote healing after post-op day number 5 unless told otherwise by your doctor. 3. If you think the wound looks like it is becoming infected (redness or worsening drainage) and/or you are experiencing fever, chill or worsening back pain and muscle spasms, contact the office so that we may evaluate you as soon as possible. B. Complications are uncommon, but please contact us if you have any signs or symptoms of: 1. wound infection (fever higher than 102.5 degrees F, redness, separation of wound, drainage, or increasing pain from the incision) 2. blood clots in legs (pain, swelling, redness and warmth in legs) 3. urinary tract infection (fever higher than 102.5 degrees F, burning upon urination or increased frequency of urination) 4. nerve problems (inability to walk on your toes or heels, numbness, loss of bowel or bladder control) 5. any other symptoms that concern you C. Please call the office at if you have any concerns or questions about your operation or recovery. D. No smoking! Smoking drastically decreases the chance of a solid fusion. E. Do not take any anti-inflammatory medications (Indocin, Advil, Motrin, Aspirin, Naprosyn, etc.) as these may inhibit the chance of a solid fusion. Tylenol is okay to take for pain. MANAGING PAIN AFTER SPINAL SURGERY 1. Narcotic medication is intended for short-term use and will be provided for surgical pain. Surgical pain usually lasts for a period of 4-6 weeks. Narcotic medication includes Percocet, Vicodin, Darvocet, Tylenol #3 or Lortab. 2. Longer-term pain is more appropriately treated with non-narcotic medication such as Tylenol ES. 3. Muscle spasm is not appropriately treated with narcotics. Muscle relaxers such as Soma, Flexeril or Skelaxin can be used along with Tylenol ES. 4. Remember that we all live with some "aches and pains". This is not unusual or uncommon after an injury or as we get older. a. Back pain is expected and may include muscle spasms for 4 to 6 weeks after surgery. The pain should gradually improve. If the pain worsens for no apparent reason, please contact the office. b. Intermittent leg pain may also be experienced and should not be concerned about unless it worsens for no apparent reason. If so, please contact the office. 5. We will provide appropriate medication within the normal guidelines of their prescribed use. We will also be very cautious and aware of potential abuse and extended duration of patients' medication needs. a. Pain medications are for your comfort and to assist with sleep and rest so that the tissue can heal. They are not provided in order to return to normal activity and should not be used through the day. To do so or worsening pain at night can result from ongoing tissue damage and development of tolerance to the prescribed medicine. 6. Please allow 2-3 days to process refills. Prescriptions will not be mailed but must be picked up at the office. FOLLOW UP VISIT: Keep your scheduled follow-up appointment. Any questions, please call the office at . Pending Studies at Discharge: No Stand-Alone Forms: My [employer] Skilled Items Patient informed of condition?: Yes DNR: No Discharge Level of Care: Skilled Communicable Disease: No Discharge Prognosis: Improving Lines: None Urinary Catheter: No Medications and DC Order Prescriptions: New tramadol 50 mg tablet 50 mg PO Q6H PRN (Reason: pain, moderate) Qty: 30 RF: 0 oxycodone 5 mg tablet 5 mg PO Q6H PRN (Reason: pain, severe) Qty: 10 RF: 0 Continued bupropion HCl 150 mg tablet sustained-release 12 hr 150 mg PO BID Qty: 60 RF: 2 lorazepam 0.5 mg tablet See Rx Instructions PO DAILY PRN (Reason: anxiety) Qty: 30 RF: 0 (DME) blood-glucose meter [SiteflyTouch Ultra2 Meter] misc See Dose Instructions .ROUTE .MEDSUPPLY Qty: 1 RF: 0 (DME) OneTouch Ultra Blue Test Strip strip See Dose Instructions .ROUTE .MEDSUPPLY Qty: 50 RF: 3 (DME) lancets [OneTouch Delica Lancets] 33 gauge misc See Dose Instructions .ROUTE .MEDSUPPLY Qty: 100 RF: 3 paroxetine HCl 30 mg tablet 30 mg PO HS Qty: 90 RF: 1 metformin 500 mg tablet 500 mg PO BID Qty: 180 RF: 1 lisinopril 10 mg tablet 10 mg PO HS Qty: 90 RF: 1 levothyroxine 25 mcg tablet 25 mcg PO QAM Qty: 90 RF: 1 atorvastatin 10 mg tablet 10 mg PO DAILY RF: 0 omeprazole 20 mg capsule,delayed release(DR/EC) 20 mg PO QAM RF: 0 metoprolol tartrate 25 mg tablet 12.5 mg PO BID RF: 0 ferrous sulfate [iron] 325 mg (65 mg iron) Tablet 325 mg PO DAILY RF: 0 magnesium 200 mg Tablet 800 mg PO DAILY RF: 0 calcium carbonate-vitamin D3 [Calcium 600 + D(3)] 600 mg(1,500mg) -400 unit Tablet 1 tab PO BID RF: 0 cholecalciferol (vitamin D3) [Vitamin D3] 50 mcg (2,000 unit) Tablet 50 mcg PO QAM RF: 0 tramadol 50 mg tablet 50 mg PO Q6H PRN (Reason: pain, moderate) Qty: 30 RF: 0 acetaminophen [Acetaminophen Extra Strength] 500 mg Tablet 1,000 mg PO Q6H PRN (Reason: Pain) RF: 0 aspirin 81 mg tablet,delayed release (DR/EC) 81 mg PO QAM RF: 0 loratadine 10 mg tablet 10 mg PO QAM RF: 0 Discharge Orders: Discharge Order (Routine); Ordered 10/11/19 Ordered By: Surjit Santana/Other Patient Handouts: Hyperglycemia, Hypoglycemia, Diabetes Type 2 Managing, Blood Sugar Check, Diabetes Meal Planning Admission Data Admit Date/Time: 10/07/19 12:52 Attending Provider: Surjit Tello Admit Provider: Surjit Tello Primary Care Provider: Stephenie Ortiz Other Providers: Beth Guerrero ; James Miguel
[2019-10-11] MEDS: FERROUS SULFATE 325 MG TAB PO SCH (09:00)
[2019-10-11] MEDS: METOPROLOL TARTRATE 25 MG TAB PO SCH (09:00)
[2019-10-11] MEDS: INSULIN ASPART 100 UNITS/ML 3 ML PEN SC SCH (09:01)
[2019-10-11] MEDS: CALCIUM 600MG + VIT D 400 IU TAB PO SCH (09:02)
[2019-10-11] MEDS: LORATADINE 10 MG TAB PO SCH (09:03)
[2019-10-11] MEDS: MAGNESIUM OXIDE 400 MG TAB PO SCH (09:03)
[2019-10-11] MEDS: ASPIRIN 81 MG ECTAB PO SCH (09:03)
[2019-10-11] MEDS: ATORVASTATIN 10 MG TAB PO SCH (09:03)
[2019-10-11] MEDS: BuPROPion SR 150 MG TABCR PO SCH (09:04)
[2019-10-11] MEDS: PANTOprazole 40 MG TAB PO SCH (09:04)
--- NOTE | 2019-10-14 11:42 | Coding Query ---
To promote full compliance with coding requirements relating to patient care, physician participation is requested in all cases of old coin dealer uncertainty. Please assist us with the question(s) below: Coding Question(s): 1. It was noted in the record that the patient has a history of osteoporosis. According to coding guidelines "a code for osteoporotic fracture, and not a traumatic fracture, should be used for any patient with known osteoporosis who suffers a fracture, even if the patient had a minor fall or trauma, if that fall or trauma would not usually break a normal, healthy bone." Please indicate below the type of fracture: Physician's Response(s): ( x ) Osteoporotic fracture of Lumbar Spine (across the L4 -L5 fusion mass consistent with delayed to nonhealing) ( ) Traumatic fracture of (across the L4 -L5 fusion mass consistent with delayed to nonhealing) ( ) Other, please specify ( ) Unable to be determined 2. Please specify further below, in your clinical opinion, regarding the Fracture across the L4-L5 fusion mass with delayed to nonhealing. ( ) This was a postoperative complication ( x ) This was not a postoperative complication ( ) Other: Please Specify MTDD
== END 2019-10-11 12:46 | DRG 460 ==
LOC: ASU 08:19 → 3E 12:52